=== PATIENT | male | born 1945 | race Caucasian/White ===

== ENCOUNTER 2017-03-19 20:28 | Outpatient (CLI) | payer MEDICARE, BC | END 2017-03-19 20:29 | disposition critical access hospital (66) | DX: R41.82 Altered mental status, unspecified (principal) | CPT/HCPCS: A0425; A0427 ==

== ENCOUNTER 2017-03-19 21:03 | Emergency (ER) | payer MEDICARE, BC ==
[2017-03-19 21:45] LABS: BILIRUBIN,URINE NEGATIVE (NEGATIVE)
[2017-03-19 21:50] LABS: UA CHARGE (STRIP ONLY) YES; UR CULTURE IF IND NOT INDICATED
[2017-03-19 22:03] LABS: BASOPHILS # (AUTO) 0.1 10^3/uL (0.0-0.1); BASOPHILS % (AUTO) 1.1 %; EOSINOPHILS # (AUTO) 0.2 10^3/uL (0.0-0.7); EOSINOPHILS % (AUTO) 3.2 %; HCT - HEMATOCRIT 41.7 % (42.0-52.0); HGB - HEMOGLOBIN 13.9 g/dL (14.0-18.0); LYMPHOCYTES # (AUTO) 0.9 10^3/uL (1.5-3.5); LYMPHOCYTES % (AUTO) 15.7 %; MEAN CORPUSCULAR HEMOGLOBIN 31.2 pg (27.0-31.0); MEAN CORPUSCULAR HGB CONC 33.2 g/dL (32.0-36.0); MEAN CORPUSCULAR VOLUME 93.9 fL (80.0-94.0); MEAN PLATELET VOLUME 8.1 fL (7.4-11.4); MONOCYTES # (AUTO) 0.5 10^3/uL (0.0-1.0); MONOCYTES % (AUTO) 9.5 %; NEUTROPHILS # (AUTO) 4.1 10^3/uL (1.5-6.6); NEUTROPHILS % (AUTO) 70.5 %; RED BLOOD COUNT 4.44 10^6/uL (4.70-6.10); RED CELL DISTRIBUTION WIDTH 15.4 % (12.0-15.0); UNCORRECTED WHITE BLOOD COUNT 5.8 x10^3/uL; WHITE BLOOD COUNT 5.8 x10^3/uL (4.8-10.8)
[2017-03-19 22:15] LABS: ALBUMIN/GLOBULIN RATIO 1.8 (1.0-2.2); BILIRUBIN,TOTAL 0.6 mg/dL (0.2-1.0); CALCIUM 9.3 mg/dL (8.5-10.3); CREATININE 0.9 mg/dL (0.6-1.2); MAGNESIUM 2.3 mg/dL (1.7-2.8); PHOSPHORUS 2.5 mg/dL (2.5-4.6); TOTAL PROTEIN 7.4 g/dL (6.7-8.2)
[2017-03-19 22:21] VITALS: BP 173/91
--- NOTE | 2017-03-19 22:28 | ED Physician Documentation ---
PD HPI ALTERED MENTAL STATUS - Stated complaint Stated Complaint: AMS - Chief complaint Chief Complaint: Neuro - History obtained from History obtained from: Patient PD PAST MEDICAL HISTORY - Past Medical History Past Medical History: Yes Cardiovascular: High cholesterol Respiratory: None Neuro: None Endocrine/Autoimmune: None GI: None : Benign prostate hypertrophy HEENT: None Psych: Post traumatic stress disorder Derm: None - Past Surgical History Past Surgical History: Yes General: Other - Present Medications Home Medications: Ambulatory Orders Medication Instructions Recorded Confirmed Acetaminophen 1 mg PO DAILY 03/19/17 03/19/17 Atorvastatin [Lipitor] 20 mg PO DAILY 03/19/17 03/19/17 Baclofen 40 mg PO BID 03/19/17 03/19/17 Cholecalciferol (Vitamin D3) 4,000 unit PO DAILY 03/19/17 03/19/17 [Vitajoy Daily D] Duloxetine HCl [Cymbalta] 120 mg PO DAILY 03/19/17 03/19/17 LORazepam [Ativan] 1 mg PO DAILY 03/19/17 03/19/17 Metoprolol Succinate 1 mg PO DAILY 03/19/17 03/19/17 Naproxen [Naprosyn] 1 mg PO BID 03/19/17 03/19/17 clonazePAM [KlonoPIN] 1.5 mg pe PO DAILY 03/19/17 03/19/17 - Allergies Allergies/Adverse Reactions: Allergies Allergy/AdvReac Type Severity Reaction Status Date / Time clonidine AdvReac Hives Verified 03/19/17 21:22 codeine AdvReac Hallucinati Verified 03/19/17 21:22 ons diphenhydramine AdvReac Unknown Verified 03/19/17 21:23 morphine AdvReac Hallucinati Verified 03/19/17 21:23 ons prazosin AdvReac Unknown Verified 03/19/17 21:23 sulfamethoxazole AdvReac Hives Verified 03/19/17 21:22 [From Bactrim] trimethoprim [From Bactrim] AdvReac Hives Verified 03/19/17 21:22 - Social History Does the pt smoke?: No Smoking Status: Never smoker Does the pt drink ETOH?: Yes Does the pt have substance abuse?: No - Immunizations Immunizations are current?: Yes - POLST Patient has POLST: No Results - Vitals Vitals: Vital Signs - 24 hr 03/19/17 03/19/17 21:05 22:20 Temperature 36.2 C L 36.7 C Heart Rate 77 67 Respiratory 18 16 Rate Blood Pressure 170/84 H 173/91 H O2 Saturation 96 96 Oxygen O2 Source Room air - Labs Labs: Laboratory Tests 03/19/17 03/19/17 03/19/17 21:35 21:54 21:54 WBC 5.8 RBC 4.44 L Hgb 13.9 L Hct 41.7 L MCV 93.9 MCH 31.2 H MCHC 33.2 RDW 15.4 H Plt Count 186 MPV 8.1 Neut # 4.1 Lymph # 0.9 L [place] # 0.5 Eos # 0.2 Baso # 0.1 Absolute Nucleated RBC 0.00 Nucleated RBCs 0.0 Sodium 143 Potassium 4.0 Chloride 108 Carbon Dioxide 28 Anion Gap 7.0 BUN 23 H Creatinine 0.9 Estimated GFR (MDRD) 83 L Glucose 102 H Calcium 9.3 Phosphorus 2.5 Magnesium 2.3 Total Bilirubin 0.6 AST 26 ALT 21 Alkaline Phosphatase 65 Ammonia B-Natriuretic Peptide Total Protein 7.4 Albumin 4.8 Globulin 2.6 Albumin/Globulin Ratio 1.8 Lipase 32 Urine Color YELLOW Urine Clarity CLEAR Urine pH 6.0 Ur Specific [place] 1.025 Urine Protein NEGATIVE Urine Glucose (UA) NEGATIVE Urine Ketones TRACE Urine Occult Blood NEGATIVE Urine Nitrite NEGATIVE Urine Bilirubin NEGATIVE Urine Urobilinogen 0.2 (NORMAL) Ur Leukocyte Esterase NEGATIVE Ur Microscopic Review NOT INDICATED Urine Culture Comments NOT INDICATED Ethyl Alcohol 5.8 03/19/17 03/19/17 21:54 21:54 WBC RBC Hgb Hct MCV MCH MCHC RDW Plt Count MPV Neut # Lymph # [place] # Eos # Baso # Absolute Nucleated RBC Nucleated RBCs Sodium Potassium Chloride Carbon Dioxide Anion Gap BUN Creatinine Estimated GFR (MDRD) Glucose Calcium Phosphorus Magnesium Total Bilirubin AST ALT Alkaline Phosphatase Ammonia 11.4 B-Natriuretic Peptide 106 H Total Protein Albumin Globulin Albumin/Globulin Ratio Lipase Urine Color Urine Clarity Urine pH Ur Specific [place] Urine Protein Urine Glucose (UA) Urine Ketones Urine Occult Blood Urine Nitrite Urine Bilirubin Urine Urobilinogen Ur Leukocyte Esterase Ur Microscopic Review Urine Culture Comments Ethyl Alcohol Departure - Departure Disposition: 01 Home, Self Care Clinical Impression: Medication adverse effect Condition: Good Instructions: Delirium Prevent Follow-Up: Radha Headr ARNP [Primary Care Provider] - Within 3 Days Comments: Your diagnostics today were within normal limits. Your symptoms were likely secondary to the combination of medications and alcohol. The mixture of the medications can be sedating and can be dangerous. Try to make sure you are careful about the amount you are taking and how often. You should follow up with your doctor on wednesday for possibly taking less of the benzodiazapams. You may return to the emergency department at any time for new, worsening or uncontrollable symptoms.
--- NOTE | 2017-03-20 00:12 | ED Physician Documentation ---
PD HPI ALTERED MENTAL STATUS - Stated complaint Stated Complaint: AMS - Chief complaint Chief Complaint: Neuro - History obtained from History obtained from: Patient, Family, EMS - History of Present Illness Timing - onset: How many hours ago (4) Timing - details: Gradual onset, Now resolved Quality / character: Confused, Disoriented Associated symptoms: No: Fever, Headache, Stiff neck Contributing factors: Recent med change Basline status: Alert and oriented X 3, Independent Similar symptoms before: Work up / diagnostics, Treatment, Follow up Recently seen: Not recently seen - Additional information Additional information: Patient is a 71 year old male with with multiple comorbidities including anxiety , and back pain who is presenting to the emergency department for altered mental status. According to patient and ems patient reports that there is about a 4 hour window of today that he did not remember. He states that he might have taken the wrong amount of his baclofen but he isn't really sure. Review of Systems Constitutional: denies: Fever, Chills Eyes: denies: Decreased vision, Photophobia Ears: denies: Ear pain, Drainage/discharge Nose: denies: Rhinorrhea / runny nose, Congestion Throat: denies: Dental pain / toothache, Oral lesions / sores Cardiac: denies: Chest pain / pressure, Palpitations Respiratory: denies: Dyspnea, Cough, Wheezing GI: denies: Abdominal Pain, Nausea, Vomiting Skin: denies: Rash, Lesions Musculoskeletal: denies: Neck pain, Back pain, Extremity pain Neurologic: reports: Confused. denies: Generalized weakness, Focal weakness, Numbness Psychiatric: reports: Anxiety. denies: Depressed, Suicidal Immunocompromised: denies: Immunocompromised PD PAST MEDICAL HISTORY - Past Medical History Past Medical History: Yes Cardiovascular: High cholesterol Respiratory: None Neuro: None Endocrine/Autoimmune: None GI: None : Benign prostate hypertrophy HEENT: None Psych: Post traumatic stress disorder Derm: None - Past Surgical History Past Surgical History: Yes General: Other - Present Medications Home Medications: Ambulatory Orders Medication Instructions Recorded Confirmed Acetaminophen 1 mg PO DAILY 03/19/17 03/19/17 Atorvastatin [Lipitor] 20 mg PO DAILY 03/19/17 03/19/17 Baclofen 40 mg PO BID 03/19/17 03/19/17 Cholecalciferol (Vitamin D3) 4,000 unit PO DAILY 03/19/17 03/19/17 [Vitajoy Daily D] Duloxetine HCl [Cymbalta] 120 mg PO DAILY 03/19/17 03/19/17 LORazepam [Ativan] 1 mg PO DAILY 03/19/17 03/19/17 Metoprolol Succinate 1 mg PO DAILY 03/19/17 03/19/17 Naproxen [Naprosyn] 1 mg PO BID 03/19/17 03/19/17 clonazePAM [KlonoPIN] 1.5 mg pe PO DAILY 03/19/17 03/19/17 - Allergies Allergies/Adverse Reactions: Allergies Allergy/AdvReac Type Severity Reaction Status Date / Time clonidine AdvReac Hives Verified 03/19/17 21:22 codeine AdvReac Hallucinati Verified 03/19/17 21:22 ons diphenhydramine AdvReac Unknown Verified 03/19/17 21:23 morphine AdvReac Hallucinati Verified 03/19/17 21:23 ons prazosin AdvReac Unknown Verified 03/19/17 21:23 sulfamethoxazole AdvReac Hives Verified 03/19/17 21:22 [From Bactrim] trimethoprim [From Bactrim] AdvReac Hives Verified 03/19/17 21:22 - Social History Does the pt smoke?: No Smoking Status: Never smoker Does the pt drink ETOH?: Yes Does the pt have substance abuse?: No - Immunizations Immunizations are current?: Yes - POLST Patient has POLST: No PD ED PE NORMAL - Vitals Vital signs reviewed: Yes - General General: No acute distress, Well developed/nourished - HEENT HEENT: Atraumatic, PERRL, Pharynx benign - Neck Neck: Supple, no meningeal sign, No JVD - Cardiac Cardiac: RRR, No murmur - Respiratory Respiratory: No respiratory distress, Clear bilaterally - Abdomen Abdomen: Soft, Non tender, Non distended - Derm Derm: Normal color, Warm and dry, No rash - Extremities Extremities: No deformity - Neuro Neuro: No motor deficit, No sensory deficit, Normal speech - Psych Psych: Normal mood, Normal affect PD ED PE EXPANDED - Neuro Neuro: Other (alert and oriented to place and situation, but could not remember the date) Results - Vitals Vitals: Vital Signs - 24 hr 03/19/17 03/19/17 21:05 22:20 Temperature 36.2 C L 36.7 C Heart Rate 77 67 Respiratory 18 16 Rate Blood Pressure 170/84 H 173/91 H O2 Saturation 96 96 Oxygen O2 Source Room air - Labs Labs: Laboratory Tests 03/19/17 03/19/17 03/19/17 21:35 21:54 21:54 WBC 5.8 RBC 4.44 L Hgb 13.9 L Hct 41.7 L MCV 93.9 MCH 31.2 H MCHC 33.2 RDW 15.4 H Plt Count 186 MPV 8.1 Neut # 4.1 Lymph # 0.9 L [place] # 0.5 Eos # 0.2 Baso # 0.1 Absolute Nucleated RBC 0.00 Nucleated RBCs 0.0 Sodium 143 Potassium 4.0 Chloride 108 Carbon Dioxide 28 Anion Gap 7.0 BUN 23 H Creatinine 0.9 Estimated GFR (MDRD) 83 L Glucose 102 H Calcium 9.3 Phosphorus 2.5 Magnesium 2.3 Total Bilirubin 0.6 AST 26 ALT 21 Alkaline Phosphatase 65 Ammonia B-Natriuretic Peptide Total Protein 7.4 Albumin 4.8 Globulin 2.6 Albumin/Globulin Ratio 1.8 Lipase 32 TSH Urine Color YELLOW Urine Clarity CLEAR Urine pH 6.0 Ur Specific [place] 1.025 Urine Protein NEGATIVE Urine Glucose (UA) NEGATIVE Urine Ketones TRACE Urine Occult Blood NEGATIVE Urine Nitrite NEGATIVE Urine Bilirubin NEGATIVE Urine Urobilinogen 0.2 (NORMAL) Ur Leukocyte Esterase NEGATIVE Ur Microscopic Review NOT INDICATED Urine Culture Comments NOT INDICATED Urine Opiates Screen NEGATIVE Ur Oxycodone Screen NEGATIVE Urine Methadone Screen NEGATIVE Ur Propoxyphene Screen NEGATIVE Ur Barbiturates Screen NEGATIVE Ur Tricyclics Screen NEGATIVE Ur Phencyclidine Scrn NEGATIVE Ur Amphetamine Screen NEGATIVE U Methamphetamines Scrn NEGATIVE U Benzodiazepines Scrn POSITIVE H Urine Cocaine Screen NEGATIVE U Cannabinoids Screen NEGATIVE Ethyl Alcohol 5.8 03/19/17 03/19/17 03/19/17 21:54 21:54 21:54 WBC RBC Hgb Hct MCV MCH MCHC RDW Plt Count MPV Neut # Lymph # [place] # Eos # Baso # Absolute Nucleated RBC Nucleated RBCs Sodium Potassium Chloride Carbon Dioxide Anion Gap BUN Creatinine Estimated GFR (MDRD) Glucose Calcium Phosphorus Magnesium Total Bilirubin AST ALT Alkaline Phosphatase Ammonia 11.4 B-Natriuretic Peptide 106 H Total Protein Albumin Globulin Albumin/Globulin Ratio Lipase TSH 0.90 Urine Color Urine Clarity Urine pH Ur Specific [place] Urine Protein Urine Glucose (UA) Urine Ketones Urine Occult Blood Urine Nitrite Urine Bilirubin Urine Urobilinogen Ur Leukocyte Esterase Ur Microscopic Review Urine Culture Comments Urine Opiates Screen Ur Oxycodone Screen Urine Methadone Screen Ur Propoxyphene Screen Ur Barbiturates Screen Ur Tricyclics Screen Ur Phencyclidine Scrn Ur Amphetamine Screen U Methamphetamines Scrn U Benzodiazepines Scrn Urine Cocaine Screen U Cannabinoids Screen Ethyl Alcohol PD MEDICAL DECISION MAKING - ED course Complexity details: reviewed old records, reviewed results, re-evaluated patient , considered differential, d/w patient, d/w family ED course: Patient was seen and examined at bedside. iV access was gained and labs were drawn. when patient's arrived more information was provided. Patient had taken too much baclofen to go along with two benzodiazapams. Patient then proceeded to stop for a beer or two at lunch as well. Patient has had this issue before where he takes too much of his medication and gets confused. They stated that they did not want the CT at this time. Upon discharge patient was awake, alert and in no distress. Patient was discharged in stable condition. Departure - Departure Disposition: 01 Home, Self Care Clinical Impression: Medication adverse effect Condition: Good Instructions: Delirium Prevent Follow-Up: Radha Heard ARNP [Primary Care Provider] - Within 3 Days Comments: Your diagnostics today were within normal limits. Your symptoms were likely secondary to the combination of medications and alcohol. The mixture of the medications can be sedating and can be dangerous. Try to make sure you are careful about the amount you are taking and how often. You should follow up with your doctor on wednesday for possibly taking less of the benzodiazapams. You may return to the emergency department at any time for new, worsening or uncontrollable symptoms. Discharge Date/Time: 03/19/17 22:35
== END 2017-03-19 22:35 | disposition home or self-care (01) ==
LOC: EDUNIT# → ED 21:03
DX: R41.82 Altered mental status, unspecified (principal); T42.8X5A Adverse effect of antiparkinsonism drugs and other central muscle-tone depressants, initial encounter; Y92.019 Unspecified place in single-family (private) house as the place of occurrence of the external cause; E78.00 Pure hypercholesterolemia, unspecified; N40.0 Benign prostatic hyperplasia without lower urinary tract symptoms; F41.9 Anxiety disorder, unspecified; M54.9 Dorsalgia, unspecified
CPT/HCPCS: 80053; 80306; 81003; 82140; 83690; 83735; 83880; 84100; 84443; 85025; 99284; G0480; 80320; 81001; 87086

== ENCOUNTER 2017-04-24 10:36 | Outpatient (CLI) | payer MEDICARE, BC | END 2017-04-24 10:37 | disposition critical access hospital (66) | LOC: EMS 10:36 | PROVIDERS: ATTEND Surgery | DX: R41.82 Altered mental status, unspecified (principal) | CPT/HCPCS: A0425; A0429 ==

== ENCOUNTER 2017-04-24 11:14 | Inpatient (IN) | payer MEDICARE, BC ==
--- NOTE | 2017-04-24 12:16 | ED Physician Documentation ---
History of Present Illness - Stated complaint Stated Complaint: MHE - Chief complaint Chief Complaint: MHE - Additonal information Additional information: hx from pt 71 male Pmhx prior back surgery, HTN, sleep apnea uses CPAP, lipids. depression, anxiety , PTSD. hx bladder cancer, hx TIA per report recently admitted to [facility] 04/13-04/18 for monitored withdrawal from baclofen clonazepam and ativan and at dc was started on trazodone and gabapentin and continued his cymbalta per (per nurse who called ) pt has been confused since dc and now is hallucinating per he is not safe at home pt states he has had hallucinations with withdrawal from gabapentin baclofen and clonazepam before too last Nov - states the sx were due to baclofen withdrawal denies EtOH use - last drink 03/19/17 no reported seizure per EMS and pt no fall pt has a HAD last night but not before and not now no CP AP no fever cough NVD or urinary sx pt states he feels things under his skin and can see things on his legs, no auditory hallucinations no reported SI HI Review of Systems Constitutional: denies: Fever, Chills Ears: denies: Ear pain Throat: denies: Sore throat Cardiac: denies: Chest pain / pressure Respiratory: denies: Dyspnea GI: denies: Abdominal Pain : denies: Dysuria Psychiatric: reports: Hallucinations. denies: Depressed, Suicidal, Homicidal Endocrine: denies: Easy bruising / bleeding Immunocompromised: denies: Immunocompromised PD PAST MEDICAL HISTORY - Past Medical History Cardiovascular: High cholesterol Respiratory: None Neuro: None Endocrine/Autoimmune: None GI: None : Benign prostate hypertrophy HEENT: None Psych: Post traumatic stress disorder Derm: None - Past Surgical History Past Surgical History: Yes General: Other - Present Medications Home Medications: Ambulatory Orders Medication Instructions Recorded Confirmed Atorvastatin [Lipitor] 20 mg PO DAILY 03/19/17 04/25/17 Metoprolol Succinate 100 mg PO DAILY@199903/19/17 04/25/17 Melatonin 10 mg ORAL DAILY PRN 04/24/17 04/25/17 Cholecalciferol (Vitamin D3) 2,000 units PO DAILY@1400 04/25/17 04/25/17 [Vitamin D3] Cyanocobalamin (Vitamin B-12) 10,000 mcg PO DAILY@0800 04/25/17 04/25/17 [Vitamin B-12] Levomefolate Calcium 15 mg PO DAILY 04/25/17 04/25/17 [l-Methylfolate] Milk Thistle 250 mg PO DAILY@199904/25/17 04/25/17 Multivit-Min/FA/Lycopen/Lutein 1 tab PO DAILY@79904/25/17 04/25/17 [Centrum Silver Men Tablet] Naproxen Sodium 220 mg PO DAILY@139904/25/17 04/25/17 Naproxen Sodium 220 mg PO DAILY@199904/25/17 04/25/17 Naproxen Sodium 440 mg PO DAILY@79904/25/17 04/25/17 [place]-3S/Dha/Epa/Fish Oil/D3 [Fish 1 tab PO DAILY@79904/25/17 04/25/17 Oil Gummies] S-Adenosylmethionine Sul Tosyl 400 mg PO DAILY@79904/25/17 04/25/17 [Mehdi-E] S-Adenosylmethionine Sul Tosyl 400 mg PO DAILY@139904/25/17 04/25/17 [Mehdi-E] Turmeric Root Extract [Turmeric] 1,500 mg PO DAILY@199904/25/17 04/25/17 Ubidecarenone/Vit E Acetate [Co 200 mg PO DAILY@139904/25/17 04/25/17 Q-10 100 mg Softgel] - Allergies Allergies/Adverse Reactions: Allergies Allergy/AdvReac Type Severity Reaction Status Date / Time clonidine AdvReac Hives Verified 04/24/17 11:30 codeine AdvReac Hallucinati Verified 04/24/17 11:30 ons diphenhydramine AdvReac Unknown Verified 04/24/17 11:30 morphine AdvReac Hallucinati Verified 04/24/17 11:30 ons prazosin AdvReac Unknown Verified 04/24/17 11:30 sulfamethoxazole AdvReac Hives Verified 04/24/17 11:30 [From Bactrim] trimethoprim [From Bactrim] AdvReac Hives Verified 04/24/17 11:30 - Social History Does the pt smoke?: No Smoking Status: Never smoker Does the pt drink ETOH?: Yes Does the pt have substance abuse?: No - Immunizations Immunizations are current?: Yes - POLST Patient has POLST: No PD ED PE NORMAL - Vitals Vital signs reviewed: Yes - General General: Other (alert oriented cooperative but confused - cannot recall his meds or dates he was admitted precisely, does not remember what he was withdrawm from) - HEENT HEENT: PERRL - Neck Neck: Supple, no meningeal sign - Cardiac Cardiac: RRR - Respiratory Respiratory: No respiratory distress, Clear bilaterally - Abdomen Abdomen: Soft, Non tender - Neuro Neuro: train inspector 2-12 intact, No motor deficit. No: Alert and oriented X 3 - Psych Psych: Other (no SI HI but having visual and tactile hallucinations) Results - Vitals Vitals: Vital Signs - 24 hr 04/24/17 15:35 Heart Rate 84 Respiratory 19 Rate Blood Pressure 149/88 H O2 Saturation 93 Oxygen O2 Source Room air - Labs Labs: Laboratory Tests 04/24/17 04/24/17 04/24/17 12:35 12:35 12:35 WBC 7.9 RBC 4.58 L Hgb 14.4 Hct 41.8 L MCV 91.4 MCH 31.4 H MCHC 34.4 RDW 12.9 Plt Count 228 MPV 7.0 L Neut # 5.7 Lymph # 1.3 L [place] # 0.7 Eos # 0.1 Baso # 0.1 Absolute Nucleated RBC 0.00 Nucleated RBCs 0.0 Sodium 138 Potassium 4.5 Chloride 101 Carbon Dioxide 28 Anion Gap 9.0 BUN 19 Creatinine 0.9 Estimated GFR (MDRD) 83 L Glucose 109 H Calcium 9.5 Total Bilirubin 1.0 AST 25 ALT 29 Alkaline Phosphatase 67 Total Protein 7.5 Albumin 4.7 Globulin 2.8 Albumin/Globulin Ratio 1.7 Lipase 27 TSH 0.93 Urine Color Urine Clarity Urine pH Ur Specific [place] Urine Protein Urine Glucose (UA) Urine Ketones Urine Occult Blood Urine Nitrite Urine Bilirubin Urine Urobilinogen Ur Leukocyte Esterase Ur Microscopic Review Urine Culture Comments Salicylates < 6.0 Urine Opiates Screen Ur Oxycodone Screen Urine Methadone Screen Ur Propoxyphene Screen Acetaminophen < 10 L Ur Barbiturates Screen Ur Tricyclics Screen Ur Phencyclidine Scrn Ur Amphetamine Screen U Methamphetamines Scrn U Benzodiazepines Scrn Urine Cocaine Screen U Cannabinoids Screen Ethyl Alcohol < 5.0 04/24/17 12:52 WBC RBC Hgb Hct MCV MCH MCHC RDW Plt Count MPV Neut # Lymph # [place] # Eos # Baso # Absolute Nucleated RBC Nucleated RBCs Sodium Potassium Chloride Carbon Dioxide Anion Gap BUN Creatinine Estimated GFR (MDRD) Glucose Calcium Total Bilirubin AST ALT Alkaline Phosphatase Total Protein Albumin Globulin Albumin/Globulin Ratio Lipase TSH Urine Color YELLOW Urine Clarity CLEAR Urine pH 5.5 Ur Specific [place] >=1.030 H Urine Protein NEGATIVE Urine Glucose (UA) NEGATIVE Urine Ketones NEGATIVE Urine Occult Blood NEGATIVE Urine Nitrite NEGATIVE Urine Bilirubin NEGATIVE Urine Urobilinogen 0.2 (NORMAL) Ur Leukocyte Esterase NEGATIVE Ur Microscopic Review NOT INDICATED Urine Culture Comments NOT INDICATED Salicylates Urine Opiates Screen NEGATIVE Ur Oxycodone Screen NEGATIVE Urine Methadone Screen NEGATIVE Ur Propoxyphene Screen NEGATIVE Acetaminophen Ur Barbiturates Screen POSITIVE H Ur Tricyclics Screen NEGATIVE Ur Phencyclidine Scrn NEGATIVE Ur Amphetamine Screen NEGATIVE U Methamphetamines Scrn NEGATIVE U Benzodiazepines Scrn POSITIVE H Urine Cocaine Screen NEGATIVE U Cannabinoids Screen NEGATIVE Ethyl Alcohol - Rads (name of study) CXR Radiology: See rad report (neg) PD MEDICAL DECISION MAKING - ED course ED course: confusion and now psychosis last EtOH 03/19 last benzo should have been 04/13 (but tox screen +) doubt new onset schizophrenia at age 71 no infectious cause found more likely med related or delerium will admit for further obs and care gave zyprexa in the ER with no sig change pt declined CT but willing to have MRI - will see if available - available but pt too altered to fill out screening paperwork and has not arrived sx could be 2/2 new meds trazodone and gabapentin waited for to arrive but when she did not, I called and spoke to (she hasn't slept in days 2/2 pt behavior and that is why she didn't come) and she explains that she thinks the pt may be having withdrawal sx from baclofen, that he has been awake for days and speaking to imaginary friends and very angry at that she cannot see these imaginary friends, states pt's counselor is Dr Reese Rosado fax , states that she gave him some ativan this AM because she was desperate to calm him down, states sx started when he was dced from baclofen last fall after surgery at [facility] with terrible withdrawal psychosis, was then restarted on baclofen, and then several mild episodes with occasional missed doses, but then recently decided he wanted to get off that baclofen medication all together which is why he checked into detox, she also thinks he may be having a reaction to cymbalta which was recently started in detox, also she explains he has not had any fluids or food for days, also 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[facility] [employer] so the is very clear that the pt went to [facility] to get detox for baclofen, but the dc summary from [facility] states pt was tapered off benzos and his admit/dc dx was benzo detox and in fact his dc med reconciliation states to continue baclofen as before,, also states that cymbalta is a new medication for him but the dc summary states to continue cymbalta as before - so seems most likely all these sx of psychosis are acute baclofen withdrawal whih pt has suffered from before - or perhaps side effect of cymbalta apparently called [facility] and SW there wanted to speak with me so I called and spoke to MAURICIO Farias at [facility] detox - she states pt was tapered off baclofen last dose April 15, wdrawal sx could have been muted by phenobarb pt was on while admitted, she agrees the dc summary implies he was just there for benzo wdrawal but that he was tapered off the baclofen but not clear why would continue baclofen after detox for same, and she states per [facility] records pt was on cymbalta prior to admit though of pt states this is a new medication Departure - Departure Disposition: ED Place in Observation Clinical Impression: Psychosis Qualifiers: Psychosis type: other Qualified Code(s): F28 - Other psychotic disorder not due to a substance or known physiological condition Condition: Good Discharge Date/Time: 04/24/17 17:33
[2017-04-24 12:46] LABS: BASOPHILS # (AUTO) 0.1 10^3/uL (0.0-0.1); BASOPHILS % (AUTO) 1.1 %; EOSINOPHILS # (AUTO) 0.1 10^3/uL (0.0-0.7); EOSINOPHILS % (AUTO) 1.3 %; HCT - HEMATOCRIT 41.8 % (42.0-52.0); HGB - HEMOGLOBIN 14.4 g/dL (14.0-18.0); LYMPHOCYTES # (AUTO) 1.3 10^3/uL (1.5-3.5); LYMPHOCYTES % (AUTO) 16.7 %; MEAN CORPUSCULAR HEMOGLOBIN 31.4 pg (27.0-31.0); MEAN CORPUSCULAR HGB CONC 34.4 g/dL (32.0-36.0); MEAN CORPUSCULAR VOLUME 91.4 fL (80.0-94.0); MONOCYTES # (AUTO) 0.7 10^3/uL (0.0-1.0); NEUTROPHILS # (AUTO) 5.7 10^3/uL (1.5-6.6); NEUTROPHILS % (AUTO) 71.9 %; RED BLOOD COUNT 4.58 10^6/uL (4.70-6.10); RED CELL DISTRIBUTION WIDTH 12.9 % (12.0-15.0); UNCORRECTED WHITE BLOOD COUNT 7.9 x10^3/uL; WHITE BLOOD COUNT 7.9 x10^3/uL (4.8-10.8)
[2017-04-24 13:03] LABS: ALBUMIN/GLOBULIN RATIO 1.7 (1.0-2.2); BUN - BLOOD UREA NITROGEN 19 mg/dL (6-20); CALCIUM 9.5 mg/dL (8.5-10.3); CARBON DIOXIDE - CO2 28 mmol/L (21-32); CHLORIDE 101 mmol/L (101-111); CREATININE 0.9 mg/dL (0.6-1.2); GFR - MDRD 83 (>89); GLUCOSE 109 mg/dL (70-100); LIPASE 27 U/L (22-51); POTASSIUM 4.5 mmol/L (3.5-5.0); SALICYLATE < 6.0 mg/dL; SODIUM 138 mmol/L (135-145); TOTAL PROTEIN 7.5 g/dL (6.7-8.2)
[2017-04-24 13:04] LABS: ACETAMINOPHEN < 10 ug/mL (10-30)
[2017-04-24] MEDS ORDERED: OLANZapine ODT 5 MG TABLET TL ONE ×2 (13:32→13:37)
[2017-04-24 13:43] LABS: BILIRUBIN,URINE NEGATIVE (NEGATIVE); PH,URINE 5.5 PH (5.0-7.5)
[2017-04-24 13:46] LABS: UA CHARGE (STRIP ONLY) YES; UR CULTURE IF IND NOT INDICATED
--- NOTE | 2017-04-24 14:15 | XRAY Preliminary Report ---
Exam: XR Chest 1 View IMPRESSION: Normal single view chest. [facility] SITE ID: [id number]
--- NOTE | 2017-04-24 14:18 | XRAY Report ---
EXAM: CHEST RADIOGRAPHY EXAM DATE: 04/24/2017 02:09 PM. CLINICAL HISTORY: AMS ? infectious source. COMPARISON: 03/23/2009. TECHNIQUE: 1 view. FINDINGS: Lungs/Pleura: No focal opacities evident. No pleural effusion. No pneumothorax. Mediastinum: Within exam limitations, cardiomediastinal contour is normal. Other: None. IMPRESSION: Normal single view chest. [facility] Referring Provider Line: [phone] SITE ID: [id number]
[2017-04-24] MEDS ORDERED: SODIUM CHLORIDE 0.9% 1,000 ML IV ONE ×2 (16:55)
--- NOTE | 2017-04-24 17:00 | HISTORY & PHYSICAL EXAMINATION ---
Chief Complaint - Chief Complaint Chief Complaint: altered mental status History of Present Illness - Admitted From Admitted From:: Emergency department - History Obtained From Records Reviewed: yes History obtained from: Record review as PT is not reliable historian - History of Present Illness HPI Comment/Other: PT was brought in with acute psychosis and letered mental status. HE has acute changes from his baseline with tactile hallucinations. He was recently discharged from [facility] for monitored withdrawal of his clonazepam and lorazepam. He was started on gabapentin and trazodone. PT is now in the ED altered with confusion, agitation and manic like activity. He is not oriented at this time. He will tell you his age, BD and attempt to tell you date and day but not when asked. This appears to be more trying to remember what he had been told. In the ED his UDS was positive for benzodiazepines however he was not supposed to have taken this class of medication for 10 days. Pt had similar presentation to the ED 03/19/17 after taking benzodiazapams, baclofen and drinking ETOH. Per his [facility] perinatal social worker he had similar reaction withdrawing from baclofen in September Further discussion with his spouse by ED MD. Spouse thought he had been admitted to wean off baclofen and not benzodiazapams. She had given him some of his Benzos last night and this am to help with his agitation. He has not received Baclofen since his discharge. His Sx are the same as his presentation after stopping these in September. Review of Systems - Cardiovascular Cariovascular: denies: Chest pain - Respiratory Respiratory: denies: SOB at rest - Gastrointestinal Gastrointestinal: denies: Abdominal pain, Diarrhea, Vomiting - Musculoskeletal Musculoskeletal: denies: Muscle pain, Muscle aches - Neurological Neurological: reports: Headache. denies: Dizziness - Psychiatric Psychiatric: denies: Suicidal, Homicidal - Other Findings Other Findings: Unable to obtain an accurate ROS due to altered mental status. HE does deny: chest pain, dyspnea, abdominal pain, nausea, vomiting. He reports a headache today. History - Past Medical History Cardiovascular: reports: High cholesterol Respiratory: reports: None Neuro: reports: None Endocrine/Autoimmune: reports: None GI: reports: None : reports: Benign prostate hypertrophy HEENT: reports: None Psych: reports: Post traumatic stress disorder Derm: reports: None MRSA Hx?: No - Past Surgical History General: reports: Other - POLST Patient has POLST: No Meds/Allgy - Home Medications Home Medications: Ambulatory Orders Medication Instructions Recorded Confirmed Atorvastatin [Lipitor] 20 mg PO DAILY 03/19/17 04/24/17 Duloxetine HCl [Cymbalta] 120 mg PO DAILY 03/19/17 04/24/17 Metoprolol Succinate 100 mg PO DAILY 03/19/17 04/24/17 Naproxen [Naprosyn] 250 mg PO BID 03/19/17 04/24/17 Gabapentin 300 mg PO BID 04/24/17 04/24/17 Melatonin 5 mg ORAL DAILY PRN 04/24/17 04/24/17 traZODone [Desyrel] 50 mg PO DAILY 04/24/17 04/24/17 - Allergies Allergies/Adverse Reactions: Allergies Allergy/AdvReac Type Severity Reaction Status Date / Time clonidine AdvReac Hives Verified 04/24/17 11:30 codeine AdvReac Hallucinati Verified 04/24/17 11:30 ons diphenhydramine AdvReac Unknown Verified 04/24/17 11:30 morphine AdvReac Hallucinati Verified 04/24/17 11:30 ons prazosin AdvReac Unknown Verified 04/24/17 11:30 sulfamethoxazole AdvReac Hives Verified 04/24/17 11:30 [From Bactrim] trimethoprim [From Bactrim] AdvReac Hives Verified 04/24/17 11:30 Exam - Vital Signs Vital Signs: Vital Signs x48h Temp Pulse Resp BP Pulse Ox 04/24/17 15:35 84 19 149/88 H 93 04/24/17 11:15 36.8 C 71 18 159/79 H 96 - Physical Exam General Appearance: positive: Anxious, Other (agitated, Manic behavior) Eyes Bilateral: positive: Normal inspection, PERRL, EOMI ENT: positive: ENT inspection nml, Pharynx nml Neck: positive: Thyroid nml, No JVD Respiratory: positive: Chest non-tender, No respiratory distress, Breath sounds nml Cardiovascular: positive: Regular rate & rhythm, No murmur, No gallop Peripheral Pulses: positive: 2+ Abdomen: positive: Non-tender, No organomegaly, Nml bowel sounds Back: positive: Nml inspection Skin: positive: Warm, Dry Extremities: positive: Non-tender, Full ROM, No pedal edema Neurologic/Psychiatric: positive: Disoriented to place, Disoriented to time, Other (manic mood) Conclusion/Plan - Problem List (1) Psychosis Conclusion/Plan: Suspect this is secondary to medication withdrawal. He has a hx of similar reaction after stopping his baclofen. There is disconnect between discharge summary from [place] and 's understanding of recent hospital course. She thought he was tapered off baclofen and not his benzodiazapams. At home he stopped the baclofen and continued the benzos. PT is refusing CT scan but willing to have MRI to look for organic etiology. I suspect the family was confused on which medications to take and he abruptly stopped his Baclofen. Plan: Will continue to monitor. Plan to get MRI as ordered. 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 May need to restart his baclofen and taper this off to help prevent symptoms of withdrawal. Qualifiers: Psychosis type: other Qualified Code(s): F28 - Other psychotic disorder not due to a substance or known physiological condition (2) HTN (hypertension) Conclusion/Plan: Will continue pt on his BB. Routine BP monitoring. - Lab Results Lab results reviewed: Yes Fish Bones: 04/24/17 12:35 04/24/17 12:35 Issues/Core Measures - Anticipated LOS Anticipated Stay Length: 2 or more midnights - DVT/VTE - Prophylaxis VTE/DVT Prophylaxis med ordered at admit?: Yes - Stroke - Rehab Assessment Rehab services assessment to be ordered?: No Not Ordered - Medical Reason: Not indicated - AMI - Statin at Admit Not Ordered - Medical Reason: Not indicated
[2017-04-24] MEDS ORDERED: ZIPRASIDONE 20 MG VIAL IM PRN (17:19)
[2017-04-24] MEDS: ENOXAPARIN 40 MG/0.4 ML SYRINGE SUBQ SCH (18:14)
[2017-04-24] MEDS: SODIUM CHLORIDE FLUSH 0.9% 10 ML SYRINGE IVP SCH (18:18)
[2017-04-25] MEDS: SODIUM CHLORIDE FLUSH 0.9% 10 ML SYRINGE IVP PRN (01:45)
[2017-04-25] MEDS: PANTOPRAZOLE 40 MG TABLET PO SCH (07:04)
[2017-04-25] MEDS: SODIUM CHLORIDE FLUSH 0.9% 10 ML SYRINGE IVP SCH ×3 (07:04→21:19)
--- NOTE | 2017-04-25 08:54 | PROVIDER PROGRESS NOTE ---
Assessment/Plan - Problem List (1) Psychosis Qualifiers: Psychosis type: other Qualified Code(s): F28 - Other psychotic disorder not due to a substance or known physiological condition Assessment/Plan: Appears to be from medication withdrawal. PT is improved today but does not feel back to baseline. Plan: continue to monitor for changes in mental status. PRN medication available for agitation. Avoiding benzodiazapine and baclofen. (2) HTN (hypertension) Assessment/Plan: Mildly elevated today. Continue to monitor routine VS. No changes today - Current Meds Current Meds: Current Medications Generic Name Dose Route Start Last Admin Trade Name Freq PRN Reason Stop Dose Admin Enoxaparin Sodium 40 mg 04/24/17 18:00 04/24/17 18:14 Lovenox SUBQ 40 mg DAILY ARGENIS Administration Pantoprazole Sodium 40 mg 04/25/17 07:00 04/25/17 07:04 Protonix PO 40 mg QDAC ARGENIS Administration Sodium Chloride 10 ml 04/24/17 16:36 04/25/17 01:45 Normal Saline Flush 0.9% IVP 10 ml PRN PRN Administration NEEDED PER PROVIDER ORDERS Sodium Chloride 10 ml 04/24/17 22:00 04/25/17 07:04 Normal Saline Flush 0.9% IVP 10 ml Q8HR ARGENIS Administration - Lab Result Lab results reviewed: Yes Fish Bone Diagrams: 04/24/17 12:35 04/24/17 12:35 - Additional Planning Condition/Complexity: Stable My Orders: My Active Orders 04/24/17 16:44 Acetaminophen [Tylenol] 650 mg PO Q4HR PRN 04/24/17 16:45 SCDs [RC] QSHIFT 04/24/17 17:19 Ziprasidone IM [Geodon IM] 10 mg IM Q6H PRN 04/24/17 18:00 Enoxaparin [Lovenox] 40 mg SUBQ DAILY 04/25/17 07:00 Pantoprazole [Protonix] 40 mg PO QDAC 04/25/17 09:00 Atorvastatin [Lipitor] 20 mg PO DAILY Metoprolol Succinate [Toprol Xl] 100 mg PO DAILY Plan Discussed with:: Patient Time Spent: 15-30 minutes Subjective - Subjective Patient Reports: Feeling Better (Pt feels better today but states he is confused. He is also having trouble recalling events from the last few days.) Nursing Reports: No Complaints Objective Vital Signs: Vital Signs - 24 hr 04/24/17 04/25/17 04/25/17 17:43 00:30 02:11 Temperature 36.7 C 36.3 C L Heart Rate [ 75 92 78 Brachial] Respiratory 20 18 Rate Blood Pressure 151/84 H 170/90 H 150/73 H [Right Brachial artery] O2 Saturation 94 98 Oxygen O2 Source Room air I&O (Last 24 Hrs): Intake and Output Totals x24h 04/23/17 04/24/17 04/25/17 23:59 23:59 23:59 Intake Total 1874 515 Balance 1874 515 General: No acute distress, Other (Improved alertness but remains confused) HEENT: HAILEY ROMEROMI Neuro: Alert, CN 2-12 Grossly Intact Cardiovascular: Regular rate, No murmurs Respiratory: No respiratory distress, Breath sounds nml Abdomen: Normal bowel sounds Extremities: No edema Skin: No breakdown - Results Results: Laboratory Results WBC 7.9 x10^3/uL (4.8-10.8) 04/24/17 12:35 RBC 4.58 10^6/uL (4.70-6.10) L 04/24/17 12:35 Hgb 14.4 g/dL (14.0-18.0) 04/24/17 12:35 Hct 41.8 % (42.0-52.0) L 04/24/17 12:35 MCV 91.4 fL (80.0-94.0) 04/24/17 12:35 MCH 31.4 pg (27.0-31.0) H 04/24/17 12:35 MCHC 34.4 g/dL (32.0-36.0) 04/24/17 12:35 RDW 12.9 % (12.0-15.0) 04/24/17 12:35 Plt Count 228 10^3/uL (130-450) 04/24/17 12:35 MPV 7.0 fL (7.4-11.4) L 04/24/17 12:35 Neut # 5.7 10^3/uL (1.5-6.6) 04/24/17 12:35 Lymph # 1.3 10^3/uL (1.5-3.5) L 04/24/17 12:35 [place] # 0.7 10^3/uL (0.0-1.0) 04/24/17 12:35 Eos # 0.1 10^3/uL (0.0-0.7) 04/24/17 12:35 Baso # 0.1 10^3/uL (0.0-0.1) 04/24/17 12:35 Absolute Nucleated RBC 0.00 x10^3/uL 04/24/17 12:35 Nucleated RBCs 0.0 /100WBC 04/24/17 12:35 Sodium 138 mmol/L (135-145) 04/24/17 12:35 Potassium 4.5 mmol/L (3.5-5.0) 04/24/17 12:35 Chloride 101 mmol/L (101-111) 04/24/17 12:35 Carbon Dioxide 28 mmol/L (21-32) 04/24/17 12:35 Anion Gap 9.0 (6-13) 04/24/17 12:35 BUN 19 mg/dL (6-20) 04/24/17 12:35 Creatinine 0.9 mg/dL (0.6-1.2) 04/24/17 12:35 Estimated GFR (MDRD) 83 (>89) L 04/24/17 12:35 Glucose 109 mg/dL (70-100) H 04/24/17 12:35 Calcium 9.5 mg/dL (8.5-10.3) 04/24/17 12:35 Total Bilirubin 1.0 mg/dL (0.2-1.0) 04/24/17 12:35 AST 25 IU/L (10-42) 04/24/17 12:35 ALT 29 IU/L (10-60) 04/24/17 12:35 Alkaline Phosphatase 67 IU/L (42-121) 04/24/17 12:35 Total Protein 7.5 g/dL (6.7-8.2) 04/24/17 12:35 Albumin 4.7 g/dL (3.2-5.5) 04/24/17 12:35 Globulin 2.8 g/dL (2.1-4.2) 04/24/17 12:35 Albumin/Globulin Ratio 1.7 (1.0-2.2) 04/24/17 12:35 Lipase 27 U/L (22-51) 04/24/17 12:35 TSH 0.93 uIU/mL (0.34-5.60) 04/24/17 12:35 Urine Color YELLOW 04/24/17 12:52 Urine Clarity CLEAR (CLEAR) 04/24/17 12:52 Urine pH 5.5 PH (5.0-7.5) 04/24/17 12:52 Ur Specific [place] >=1.030 (1.002-1.030) H 04/24/17 12:52 Urine Protein NEGATIVE mg/dL (NEGATIVE) 04/24/17 12:52 Urine Glucose (UA) NEGATIVE mg/dL (NEGATIVE) 04/24/17 12:52 Urine Ketones NEGATIVE mg/dL (NEGATIVE) 04/24/17 12:52 Urine Occult Blood NEGATIVE (NEGATIVE) 04/24/17 12:52 Urine Nitrite NEGATIVE (NEGATIVE) 04/24/17 12:52 Urine Bilirubin NEGATIVE (NEGATIVE) 04/24/17 12:52 Urine Urobilinogen 0.2 (NORMAL) E.U./dL (NORMAL) 04/24/17 12:52 Ur Leukocyte Esterase NEGATIVE (NEGATIVE) 04/24/17 12:52 Ur Microscopic Review NOT INDICATED 04/24/17 12:52 Urine Culture Comments NOT INDICATED 04/24/17 12:52 Salicylates < 6.0 mg/dL 04/24/17 12:35 Urine Opiates Screen NEGATIVE (NEGATIVE) 04/24/17 12:52 Ur Oxycodone Screen NEGATIVE (NEGATIVE) 04/24/17 12:52 Urine Methadone Screen NEGATIVE (NEGATIVE) 04/24/17 12:52 Ur Propoxyphene Screen NEGATIVE (NEGATIVE) 04/24/17 12:52 Acetaminophen < 10 ug/mL (10-30) L 04/24/17 12:35 Ur Barbiturates Screen POSITIVE (NEGATIVE) H 04/24/17 12:52 Ur Tricyclics Screen NEGATIVE (NEGATIVE) 04/24/17 12:52 Ur Phencyclidine Scrn NEGATIVE (NEGATIVE) 04/24/17 12:52 Ur Amphetamine Screen NEGATIVE (NEGATIVE) 04/24/17 12:52 U Methamphetamines Scrn NEGATIVE (NEGATIVE) 04/24/17 12:52 U Benzodiazepines Scrn POSITIVE (NEGATIVE) H 04/24/17 12:52 Urine Cocaine Screen NEGATIVE (NEGATIVE) 04/24/17 12:52 U Cannabinoids Screen NEGATIVE (NEGATIVE) 04/24/17 12:52 Ethyl Alcohol < 5.0 mg/dL 04/24/17 12:35
[2017-04-25] MEDS: ATORVASTATIN 10 MG TABLET PO SCH (10:06)
[2017-04-25] MEDS: ENOXAPARIN 40 MG/0.4 ML SYRINGE SUBQ SCH (10:06)
[2017-04-25] MEDS: METOPROLOL SUCCINATE 50 MG TABLET PO SCH (10:06)
[2017-04-25] MEDS: POLYETHYLENE GLYCOL 3350 17 GM PACKET PO SCH (10:07)
[2017-04-25] MEDS: ACETAMINOPHEN 325 MG TABLET PO PRN (21:17)
[2017-04-26] MEDS ORDERED: CARBOXYMETHYLCELLULOSE OPHTH DROPS EACHEYE PRN (01:49)
[2017-04-26] MEDS: ACETAMINOPHEN 325 MG TABLET PO PRN ×3 (01:55→21:41)
[2017-04-26] MEDS: PANTOPRAZOLE 40 MG TABLET PO SCH (06:40)
[2017-04-26] MEDS: SODIUM CHLORIDE FLUSH 0.9% 10 ML SYRINGE IVP SCH ×3 (06:41→21:29)
[2017-04-26] MEDS: ENOXAPARIN 40 MG/0.4 ML SYRINGE SUBQ SCH (08:26)
[2017-04-26] MEDS: METOPROLOL SUCCINATE 50 MG TABLET PO SCH (08:26)
[2017-04-26] MEDS: ATORVASTATIN 10 MG TABLET PO SCH (08:27)
[2017-04-26] MEDS: POLYETHYLENE GLYCOL 3350 17 GM PACKET PO SCH (08:28)
--- NOTE | 2017-04-26 09:32 | PROVIDER PROGRESS NOTE ---
Assessment/Plan - Problem List (1) Psychosis Qualifiers: Psychosis type: other Qualified Code(s): F28 - Other psychotic disorder not due to a substance or known physiological condition Assessment/Plan: Mostl likely from withdrawal of Baclofen. Similar problems occurred with abrupt cessation of this medication in the past. He is feeling better today but complains of anxiety at times. He needs to be monitored at least another 24 hours before discharging. Should not be placed back on baclofen or benzos (2) HTN (hypertension) Assessment/Plan: Poor control on current medications. May be exacerbated by the medication withdrawal. Plan: continue to monitor. Add Low dose ACEI - Current Meds Current Meds: Current Medications Generic Name Dose Route Start Last Admin Trade Name Freq PRN Reason Stop Dose Admin Acetaminophen 650 mg 04/24/17 16:44 04/26/17 01:55 Tylenol PO 650 mg Q4HR PRN Administration Pain 1 to 4 Atorvastatin Calcium 20 mg 04/25/17 09:00 04/26/17 08:27 Lipitor PO 20 mg DAILY ARGENIS Administration Carboxymethylcellulose 1 drops 04/26/17 01:49 04/26/17 06:41 Refresh 1% Ophth Drops EACHEYE 1 drops Q4HR PRN Administration Dry Eye Enoxaparin Sodium 40 mg 04/24/17 18:00 04/26/17 08:26 Lovenox SUBQ 40 mg DAILY ARGENIS Administration Metoprolol Succinate 100 mg 04/25/17 09:00 04/26/17 08:26 Toprol Xl PO 100 mg DAILY ARGENIS Administration Pantoprazole Sodium 40 mg 04/25/17 07:00 04/26/17 06:40 Protonix PO 40 mg QDAC ARGENIS Administration Polyethylene Glycol 17 gm 04/25/17 09:00 04/26/17 08:28 Miralax PO Not Given DAILY ARGENIS Sodium Chloride 10 ml 04/24/17 16:36 04/25/17 01:45 Normal Saline Flush 0.9% IVP 10 ml PRN PRN Administration NEEDED PER PROVIDER ORDERS Sodium Chloride 10 ml 04/24/17 22:00 04/26/17 06:41 Normal Saline Flush 0.9% IVP 10 ml Q8HR ARGENIS Administration - Lab Result Lab results reviewed: Yes Fish Bone Diagrams: 04/24/17 12:35 04/24/17 12:35 - Additional Planning Condition/Complexity: Stable My Orders: My Active Orders 04/25/17 09:00 Atorvastatin [Lipitor] 20 mg PO DAILY Metoprolol Succinate [Toprol Xl] 100 mg PO DAILY 04/26/17 01:49 Carboxymethylcellulose 1% Opht [Refresh 1% Ophth Drops] 1 drops EACHEYE Q4HR PRN Plan Discussed with:: Patient Time Spent: 15-30 minutes Subjective - Subjective Patient Reports: Feeling Better (Feels better today. Continues to have anxiety. Did not sleep well last night.) Nursing Reports: No Complaints Objective Vital Signs: Vital Signs - 24 hr 04/25/17 04/25/17 04/25/17 10:07 12:55 16:13 Temperature 36.3 C L 36.1 C L Heart Rate [ 97 70 71 Brachial] Respiratory 16 18 Rate Blood Pressure 171/91 H 152/89 H 157/102 H [Left Brachial artery] O2 Saturation 96 97 96 04/26/17 04/26/17 00:15 09:09 Temperature 37.0 C 36.7 C Heart Rate [ 76 68 Brachial] Respiratory 18 16 Rate Blood Pressure 155/80 H 172/98 H [Left Brachial artery] O2 Saturation 96 97 Oxygen O2 Source Room air I&O (Last 24 Hrs): Intake and Output Totals x24h 04/24/17 04/25/17 04/26/17 23:59 23:59 23:59 Intake Total 1874 2365 1410 Output Total 700 Balance 1874 1665 1410 General: Alert, No acute distress HEENT: PERRLA, EOMI Neck: No JVD Neuro: Alert, Other (anxious) Cardiovascular: Regular rate, Normal S1, Normal S2 Respiratory: Chest non-tender, No respiratory distress, Breath sounds nml Abdomen: Normal bowel sounds Extremities: No edema - Results Results: Laboratory Results WBC 7.9 x10^3/uL (4.8-10.8) 04/24/17 12:35 RBC 4.58 10^6/uL (4.70-6.10) L 04/24/17 12:35 Hgb 14.4 g/dL (14.0-18.0) 04/24/17 12:35 Hct 41.8 % (42.0-52.0) L 04/24/17 12:35 MCV 91.4 fL (80.0-94.0) 04/24/17 12:35 MCH 31.4 pg (27.0-31.0) H 04/24/17 12:35 MCHC 34.4 g/dL (32.0-36.0) 04/24/17 12:35 RDW 12.9 % (12.0-15.0) 04/24/17 12:35 Plt Count 228 10^3/uL (130-450) 04/24/17 12:35 MPV 7.0 fL (7.4-11.4) L 04/24/17 12:35 Neut # 5.7 10^3/uL (1.5-6.6) 04/24/17 12:35 Lymph # 1.3 10^3/uL (1.5-3.5) L 04/24/17 12:35 [place] # 0.7 10^3/uL (0.0-1.0) 04/24/17 12:35 Eos # 0.1 10^3/uL (0.0-0.7) 04/24/17 12:35 Baso # 0.1 10^3/uL (0.0-0.1) 04/24/17 12:35 Absolute Nucleated RBC 0.00 x10^3/uL 04/24/17 12:35 Nucleated RBCs 0.0 /100WBC 04/24/17 12:35 Sodium 138 mmol/L (135-145) 04/24/17 12:35 Potassium 4.5 mmol/L (3.5-5.0) 04/24/17 12:35 Chloride 101 mmol/L (101-111) 04/24/17 12:35 Carbon Dioxide 28 mmol/L (21-32) 04/24/17 12:35 Anion Gap 9.0 (6-13) 04/24/17 12:35 BUN 19 mg/dL (6-20) 04/24/17 12:35 Creatinine 0.9 mg/dL (0.6-1.2) 04/24/17 12:35 Estimated GFR (MDRD) 83 (>89) L 04/24/17 12:35 Glucose 109 mg/dL (70-100) H 04/24/17 12:35 Calcium 9.5 mg/dL (8.5-10.3) 04/24/17 12:35 Total Bilirubin 1.0 mg/dL (0.2-1.0) 04/24/17 12:35 AST 25 IU/L (10-42) 04/24/17 12:35 ALT 29 IU/L (10-60) 04/24/17 12:35 Alkaline Phosphatase 67 IU/L (42-121) 04/24/17 12:35 Total Protein 7.5 g/dL (6.7-8.2) 04/24/17 12:35 Albumin 4.7 g/dL (3.2-5.5) 04/24/17 12:35 Globulin 2.8 g/dL (2.1-4.2) 04/24/17 12:35 Albumin/Globulin Ratio 1.7 (1.0-2.2) 04/24/17 12:35 Lipase 27 U/L (22-51) 04/24/17 12:35 TSH 0.93 uIU/mL (0.34-5.60) 04/24/17 12:35 Urine Color YELLOW 04/24/17 12:52 Urine Clarity CLEAR (CLEAR) 04/24/17 12:52 Urine pH 5.5 PH (5.0-7.5) 04/24/17 12:52 Ur Specific [place] >=1.030 (1.002-1.030) H 04/24/17 12:52 Urine Protein NEGATIVE mg/dL (NEGATIVE) 04/24/17 12:52 Urine Glucose (UA) NEGATIVE mg/dL (NEGATIVE) 04/24/17 12:52 Urine Ketones NEGATIVE mg/dL (NEGATIVE) 04/24/17 12:52 Urine Occult Blood NEGATIVE (NEGATIVE) 04/24/17 12:52 Urine Nitrite NEGATIVE (NEGATIVE) 04/24/17 12:52 Urine Bilirubin NEGATIVE (NEGATIVE) 04/24/17 12:52 Urine Urobilinogen 0.2 (NORMAL) E.U./dL (NORMAL) 04/24/17 12:52 Ur Leukocyte Esterase NEGATIVE (NEGATIVE) 04/24/17 12:52 Ur Microscopic Review NOT INDICATED 04/24/17 12:52 Urine Culture Comments NOT INDICATED 04/24/17 12:52 Salicylates < 6.0 mg/dL 04/24/17 12:35 Urine Opiates Screen NEGATIVE (NEGATIVE) 04/24/17 12:52 Ur Oxycodone Screen NEGATIVE (NEGATIVE) 04/24/17 12:52 Urine Methadone Screen NEGATIVE (NEGATIVE) 04/24/17 12:52 Ur Propoxyphene Screen NEGATIVE (NEGATIVE) 04/24/17 12:52 Acetaminophen < 10 ug/mL (10-30) L 04/24/17 12:35 Ur Barbiturates Screen POSITIVE (NEGATIVE) H 04/24/17 12:52 Ur Tricyclics Screen NEGATIVE (NEGATIVE) 04/24/17 12:52 Ur Phencyclidine Scrn NEGATIVE (NEGATIVE) 04/24/17 12:52 Ur Amphetamine Screen NEGATIVE (NEGATIVE) 04/24/17 12:52 U Methamphetamines Scrn NEGATIVE (NEGATIVE) 04/24/17 12:52 U Benzodiazepines Scrn POSITIVE (NEGATIVE) H 04/24/17 12:52 Urine Cocaine Screen NEGATIVE (NEGATIVE) 04/24/17 12:52 U Cannabinoids Screen NEGATIVE (NEGATIVE) 04/24/17 12:52 Ethyl Alcohol < 5.0 mg/dL 04/24/17 12:35
[2017-04-26] MEDS ORDERED: NON FORMULARY MED (Melatonin [Melatonin] 10 MG) ORAL PRN (10:13)
[2017-04-26] MEDS: LISINOPRIL 5 MG TABLET PO SCH (12:11)
[2017-04-26] MEDS ORDERED: DULoxetine 30 MG CAPSULE PO SCH (21:00)
[2017-04-26] MEDS: Melatonin [Melatonin] 10 MG PO PRN (21:28)
[2017-04-27 05:56] LABS: ALBUMIN/GLOBULIN RATIO 1.6 (1.0-2.2); BILIRUBIN,TOTAL 0.9 mg/dL (0.2-1.0); CALCIUM 9.5 mg/dL (8.5-10.3); POTASSIUM 4.1 mmol/L (3.5-5.0); TOTAL PROTEIN 6.9 g/dL (6.7-8.2)
[2017-04-27] MEDS: SODIUM CHLORIDE FLUSH 0.9% 10 ML SYRINGE IVP PRN (06:30)
[2017-04-27] MEDS: PANTOPRAZOLE 40 MG TABLET PO SCH (06:30)
[2017-04-27] MEDS: SODIUM CHLORIDE FLUSH 0.9% 10 ML SYRINGE IVP SCH ×3 (09:11→18:35)
[2017-04-27] MEDS: ENOXAPARIN 40 MG/0.4 ML SYRINGE SUBQ SCH (09:12)
[2017-04-27] MEDS: METOPROLOL SUCCINATE 50 MG TABLET PO SCH (09:12)
[2017-04-27] MEDS: LISINOPRIL 5 MG TABLET PO SCH (09:12)
[2017-04-27] MEDS: ATORVASTATIN 10 MG TABLET PO SCH (09:12)
[2017-04-27] MEDS: POLYETHYLENE GLYCOL 3350 17 GM PACKET PO SCH (09:13)
[2017-04-27] MEDS: ACETAMINOPHEN 325 MG TABLET PO PRN ×2 (09:24→18:34)
[2017-04-27] MEDS ORDERED: DULoxetine 30 MG CAPSULE PO SCH (13:01)
[2017-04-27] MEDS: UBIDECARENONE PO SCH (15:12)
[2017-04-27] MEDS: [UNRECOGNIZED DRUG - OTHER] PO SCH (15:12)
--- NOTE | 2017-04-27 20:01 | PROVIDER PROGRESS NOTE ---
Subjective - Prog Note Date Prog Note Date: 04/27/17 Prog Note Time: 19:58 (late entry, seen this am 745, and in afternooon) - Subjective Pt reports feeling: Improved (describes a vivid dream last night, (likes quantum physics, a asteroid/ or planet blowing up) coincided with his large volume diarrhea feels much better, slept well w/ melatonin, did not take his cymbalta last night April, able to detail his history in accurate detail) Current Medications - Current Medications Current Medications: Active Medications Generic Name Dose Route Start Last Admin Trade Name Freq PRN Reason Stop Dose Admin Acetaminophen 650 mg 04/24/17 16:44 04/27/17 18:34 Tylenol PO 650 mg Q4HR PRN Administration Pain 1 to 4 Atorvastatin Calcium 20 mg 04/25/17 09:00 04/27/17 09:12 Lipitor PO 20 mg DAILY ARGENIS Administration Carboxymethylcellulose 1 drops 04/26/17 01:49 04/26/17 06:41 Refresh 1% Ophth Drops EACHEYE 1 drops Q4HR PRN Administration Dry Eye Enoxaparin Sodium 40 mg 04/24/17 18:00 04/27/17 09:12 Lovenox SUBQ 40 mg DAILY ARGENIS Administration Lisinopril 5 mg 04/26/17 11:00 04/27/17 09:12 Zestril PO 5 mg DAILY ARGENIS Administration Metoprolol Succinate 100 mg 04/25/17 09:00 04/27/17 09:12 Toprol Xl PO 100 mg DAILY ARGENIS Administration Pantoprazole Sodium 40 mg 04/25/17 07:00 04/27/17 06:30 Protonix PO 40 mg QDAC ARGENIS Administration Melatonin [Melatonin 1 each 04/27/17 21:00 04/26/17 21:28 ] 10 Mg PO 1 each QPM PRN Administration SLEEP Ubidecarenone/Vit E 1 each 04/27/17 14:00 04/27/17 15:12 Acetate [Co Q-10 100 PO Not Given Mg Softgel] 200 Mg DAILY@1400 ARGENIS Polyethylene Glycol 17 gm 04/25/17 09:00 04/27/17 09:13 Miralax PO Not Given DAILY ARGENIS Sodium Chloride 10 ml 04/24/17 16:36 04/27/17 06:30 Normal Saline Flush 0.9% IVP 10 ml PRN PRN Administration NEEDED PER PROVIDER ORDERS Sodium Chloride 10 ml 04/24/17 22:00 04/27/17 18:35 Normal Saline Flush 0.9% IVP 10 ml Q8HR ARGENIS Administration Ziprasidone 10 mg 04/24/17 17:19 Geodon Im IM Q6H PRN Agitation Atorvastatin [Lipitor] 20 mg PO DAILY@79903/19/17 Metoprolol Succinate 100 mg PO DAILY@199903/19/17 Melatonin 10 mg ORAL DAILY PRN 04/24/17 Cholecalciferol (Vitamin D3) [Vitamin D3] 2,000 units PO DAILY@139904/25/17 Cyanocobalamin (Vitamin B-12) [Vitamin B-12] 10,000 mcg PO DAILY@79904/25/17 Levomefolate Calcium [l-Methylfolate] 15 mg PO DAILY@79904/25/17 Milk Thistle 250 mg PO DAILY@199904/25/17 Multivit-Min/FA/Lycopen/Lutein [Centrum Silver Men Tablet] 1 tab PO DAILY@79904/25/17 Naproxen Sodium 220 mg PO DAILY@139904/25/17 Naproxen Sodium 220 mg PO DAILY@199904/25/17 Naproxen Sodium 440 mg PO DAILY@79904/25/17 [place]-3S/Dha/Epa/Fish Oil/D3 [Fish Oil Gummies] 1 tab PO DAILY@79904/25/17 Quercetin Dihydrate 1 gm PO DAILY@139904/25/17 Quercetin Dihydrate 500 mg PO DAILY@79904/25/17 S-Adenosylmethionine Sul Tosyl [Mehdi-E] 400 mg PO DAILY@79904/25/17 S-Adenosylmethionine Sul Tosyl [Mehdi-E] 400 mg PO DAILY@139904/25/17 Turmeric Root Extract [Turmeric] 1,500 mg PO DAILY@199904/25/17 Ubidecarenone/Vit E Acetate [Co Q-10 100 mg Softgel] 200 mg PO DAILY@1399 Objective - Vital Signs/Intake & Output Reviewed Vital Signs: Yes Vital Signs: Vital Signs x48h Temp Pulse Resp BP Pulse Ox 04/27/17 16:15 36.8 C 76 14 141/75 H 96 8:10 36.5 61 185/93 95% 18 Intake & Output: Intake & Output 04/24/17 04/25/17 04/26/17 04/27/17 23:59 23:59 23:59 23:59 Intake Total 1874 2365 3031 2616 Output Total 700 Balance 1874 1665 3031 2616 - Objective General Appearance: positive: No acute distress, Other (sitting up in chair eating breakfast, alert, oriented , appropriate, no tremor, non toxic appearing , cooperative) Respiratory: positive: No respiratory distress, Breath sounds nml Cardiovascular: positive: Regular rate & rhythm, No murmur Extremities: positive: No pedal edema Neurologic/Psychiatric: positive: Oriented x3, Mood/affect nml - Lab Results Fish Bones: 04/24/17 12:35 04/27/17 05:31 Other Labs: Lab Results x24hrs 04/27/17 Range/Units 05:31 Sodium 139 (135-145) mmol/L Potassium 4.1 (3.5-5.0) mmol/L Chloride 103 (101-111) mmol/L Carbon Dioxide 28 (21-32) mmol/L Anion Gap 8.0 (6-13) BUN 13 (6-20) mg/dL Creatinine 1.0 (0.6-1.2) mg/dL Estimated GFR (MDRD) 74 L (>89) Glucose 123 H (70-100) mg/dL Calcium 9.5 (8.5-10.3) mg/dL Total Bilirubin 0.9 (0.2-1.0) mg/dL AST 19 (10-42) IU/L ALT 24 (10-60) IU/L Alkaline Phosphatase 62 (42-121) IU/L Total Protein 6.9 (6.7-8.2) g/dL Albumin 4.2 (3.2-5.5) g/dL Globulin 2.7 (2.1-4.2) g/dL Albumin/Globulin Ratio 1.6 (1.0-2.2) Assessment/Plan - Problem List (1) Psychosis Impression: Psychosis/acute delerium related to benzodiazepine/ baclofen withdrawal Qualifiers: Psychosis type: other Qualified Code(s): F28 - Other psychotic disorder not due to a substance or known physiological condition Assessment/Plan: Delerium MUCH improved, patient also slept well just w/ melatonin (refused the pm cymbalta, even though was advised by Dr. Rosado to take in PM in case it was contributing to his sedation. does not want it given and she d/w Dr. Ramirez spoke w/ Dr. Rosado (Reese Rosado): He is aware of want He notes patient still at high risk for a manic / PTSD episode given the temporal relationship to all the recently d/c'd meds. He advised continued hospitalization x additonal 48 hrs (til Thrusday); still has prn zyprexa if has manic (PTSD) episode (has not needed) and that Have stopped all benzos (clonazepam, lorazepam , and the Baclofen (several days already). aware that given the many years on these agents (benzo and baclofen), there still could be some w/d reaction of some form for weeks still. 04/26 Mostl likely from withdrawal of Baclofen. Similar problems occurred with abrupt cessation of this medication in the past. He is feeling better today but complains of anxiety at times. He needs to be monitored at least another 24 hours before discharging. Should not be placed back on baclofen or benzos (2) HTN (hypertension) Assessment/Plan: 04/27; still elevated, low dose acei added yesterday. reports well controlled at home and "white coat htn". He does note some low level anxiety currently; will continue to monitor and not add any new meds right now as still may have some withdrawal (SBP 141 at 4pm,) continue home metoprolol (and the acei started here) (since new ACEI, if continues on d/c should have f/u 04/26 Poor control on current medications. May be exacerbated by the medication withdrawal. Plan: continue to monitor. Add Low dose ACEI 3)Insomnia: per Dr. Rosado; will need outpatient CBT for insomina; does have sleep study already planned as outpatient continuing only with melatonin at HS for now 4) Hyperlipidemia : continue statin Qualifiers: Psychosis type: other Qualified Code(s): F28 - Other psychotic disorder not due to a substance or known physiological condition
[2017-04-27] MEDS: Melatonin [Melatonin] 10 MG PO PRN (21:43)
[2017-04-28] MEDS: PANTOPRAZOLE 40 MG TABLET PO SCH (06:01)
[2017-04-28] MEDS: SODIUM CHLORIDE FLUSH 0.9% 10 ML SYRINGE IVP SCH ×3 (06:02→22:12)
[2017-04-28] MEDS: ATORVASTATIN 10 MG TABLET PO SCH (08:41)
[2017-04-28] MEDS: METOPROLOL SUCCINATE 50 MG TABLET PO SCH (08:42)
[2017-04-28] MEDS: POLYETHYLENE GLYCOL 3350 17 GM PACKET PO SCH (08:42)
[2017-04-28] MEDS: ENOXAPARIN 40 MG/0.4 ML SYRINGE SUBQ SCH (08:42)
[2017-04-28] MEDS: LISINOPRIL 5 MG TABLET PO SCH (08:42)
[2017-04-28] MEDS: ACETAMINOPHEN 325 MG TABLET PO PRN ×2 (08:43→20:10)
[2017-04-28] MEDS: [UNRECOGNIZED DRUG - OTHER] PO SCH (13:58)
[2017-04-28] MEDS: UBIDECARENONE PO SCH (13:58)
--- NOTE | 2017-04-28 19:56 | PROVIDER PROGRESS NOTE ---
Subjective - Prog Note Date Prog Note Date: 04/28/17 Prog Note Time: 20:00 (late entry , seen early this am) - Subjective Subjective: Had a good night, feels mildly anxious Current Medications - Current Medications Current Medications: Active Medications Generic Name Dose Route Start Last Admin Trade Name Freq PRN Reason Stop Dose Admin Acetaminophen 650 mg 04/24/17 16:44 04/28/17 08:43 Tylenol PO 650 mg Q4HR PRN Administration Pain 1 to 4 Atorvastatin Calcium 20 mg 04/25/17 09:00 04/28/17 08:41 Lipitor PO 20 mg DAILY ARGENIS Administration Carboxymethylcellulose 1 drops 04/26/17 01:49 04/26/17 06:41 Refresh 1% Ophth Drops EACHEYE 1 drops Q4HR PRN Administration Dry Eye Duloxetine HCl 30 mg 04/28/17 21:00 Cymbalta PO QPM ARGENIS Enoxaparin Sodium 40 mg 04/24/17 18:00 04/28/17 08:42 Lovenox SUBQ 40 mg DAILY ARGENIS Administration Lisinopril 5 mg 04/26/17 11:00 04/28/17 08:42 Zestril PO 5 mg DAILY ARGENIS Administration Loperamide HCl 2 mg 04/28/17 19:47 Imodium PO BID ARGENIS Metoprolol Succinate 100 mg 04/25/17 09:00 04/28/17 08:42 Toprol Xl PO 100 mg DAILY ARGENIS Administration Pantoprazole Sodium 40 mg 04/25/17 07:00 04/28/17 06:01 Protonix PO 40 mg QDAC ARGENIS Administration Melatonin [Melatonin 1 each 04/27/17 21:00 04/27/17 21:43 ] 10 Mg PO 1 each QPM PRN Administration SLEEP Ubidecarenone/Vit E 1 each 04/27/17 14:00 04/28/17 13:58 Acetate [Co Q-10 100 PO Not Given Mg Softgel] 200 Mg DAILY@1400 [facility] Polyethylene Glycol 17 gm 04/25/17 09:00 04/28/17 08:42 Miralax PO Not Given DAILY ARGENIS Sodium Chloride 10 ml 04/24/17 16:36 04/27/17 06:30 Normal Saline Flush 0.9% IVP 10 ml PRN PRN Administration NEEDED PER PROVIDER ORDERS Sodium Chloride 10 ml 04/24/17 22:00 04/28/17 13:58 Normal Saline Flush 0.9% IVP 10 ml Q8HR ARGENIS Administration Ziprasidone 10 mg 04/24/17 17:19 Geodon Im IM Q6H PRN Agitation Atorvastatin [Lipitor] 20 mg PO DAILY@79903/19/17 Metoprolol Succinate 100 mg PO DAILY@199903/19/17 Melatonin 10 mg ORAL QPM PRN 04/24/17 Cholecalciferol (Vitamin D3) [Vitamin D3] 2,000 units PO DAILY@139904/25/17 Cyanocobalamin (Vitamin B-12) [Vitamin B-12] 10,000 mcg PO DAILY@79904/25/17 Levomefolate Calcium [l-Methylfolate] 15 mg PO DAILY@79904/25/17 Milk Thistle 250 mg PO DAILY@199904/25/17 Multivit-Min/FA/Lycopen/Lutein [Centrum Silver Men Tablet] 1 tab PO DAILY@79904/25/17 Naproxen Sodium 220 mg PO DAILY@139904/25/17 Naproxen Sodium 220 mg PO DAILY@199904/25/17 Naproxen Sodium 440 mg PO DAILY@79904/25/17 [place]-3S/Dha/Epa/Fish Oil/D3 [Fish Oil Gummies] 1 tab PO DAILY@79904/25/17 Quercetin Dihydrate 1 gm PO DAILY@139904/25/17 Quercetin Dihydrate 500 mg PO DAILY@79904/25/17 S-Adenosylmethionine Sul Tosyl [Mehdi-E] 400 mg PO DAILY@79904/25/17 S-Adenosylmethionine Sul Tosyl [Mehdi-E] 400 mg PO DAILY@139904/25/17 Turmeric Root Extract [Turmeric] 1,500 mg PO DAILY@199904/25/17 Ubidecarenone/Vit E Acetate [Co Q-10 100 mg Softgel] 200 mg PO DAILY@1399 Objective - Vital Signs/Intake & Output Reviewed Vital Signs: Yes Vital Signs: Vital Signs x48h Temp Pulse Resp BP Pulse Ox 04/28/17 16:34 36.8 C 76 18 151/81 H 97 Intake & Output: Intake & Output 04/25/17 04/26/17 04/27/17 04/28/17 23:59 23:59 23:59 23:59 Intake Total 2365 3031 2766 2380 Output Total 700 Balance 1665 3031 2766 2380 - Objective General Appearance: positive: No acute distress, Other (sitting up in chair brushing his teeth) Eyes Bilateral: positive: Normal inspection, EOMI, Other (wearing glasses) Cardiovascular: positive: Regular rate & rhythm, No murmur Neurologic/Psychiatric: positive: Oriented x3, Mood/affect nml - Lab Results Fish Bones: 04/24/17 12:35 04/27/17 05:31 Assessment/Plan - Problem List (1) Psychosis Impression: Psychosis/acute delerium related to benzodiazepine/ baclofen withdrawal Qualifiers: Psychosis type: other Qualified Code(s): F28 - Other psychotic disorder not due to a substance or known physiological condition Assessment/Plan: 04/28. slept well, does feel a little anxious today (just mildly) did not have a chance to speak with Dr Rosado today/ spoke with patient that I will give him the 30 mg cymbalta this evening. Even though Ms. Castillo wished to stop entirely, has been on cymbalta long-term. Will get taper instructions from Dr. Rosado plan d/c in am Add immodium for loose bowels; may still be r/t withdrawal 04/27Delerium MUCH improved, patient also slept well just w/ melatonin (refused the pm cymbalta, even though was advised by Dr. Rosado to take in PM in case it was contributing to his sedation. does not want it given and she d/w Dr. Ramirez spoke w/ Dr. Rosado (Reese Rosado): He is aware of want He notes patient still at high risk for a manic / PTSD episode given the temporal relationship to all the recently d/c'd meds. He advised continued hospitalization x additonal 48 hrs (til Thrusday); still has prn zyprexa if has manic (PTSD) episode (has not needed) and that Have stopped all benzos (clonazepam, lorazepam , and the Baclofen (several days already). aware that given the many years on these agents (benzo and baclofen), there still could be some w/d reaction of some form for weeks still. 04/26 Mostl likely from withdrawal of Baclofen. Similar problems occurred with abrupt cessation of this medication in the past. He is feeling better today but complains of anxiety at times. He needs to be monitored at least another 24 hours before discharging. Should not be placed back on baclofen or benzos (2) HTN (hypertension) Assessment/Plan: 04/28; blood pressure well controlled, no changes to current regimen 04/27; still elevated, low dose acei added yesterday. reports well controlled at home and "white coat htn". He does note some low level anxiety currently; will continue to monitor and not add any new meds right now as still may have some withdrawal (SBP 141 at 4pm,) continue home metoprolol (and the acei started here) (since new ACEI, if continues on d/c should have f/u 04/26 Poor control on current medications. May be exacerbated by the medication withdrawal. Plan: continue to monitor. Add Low dose ACEI 3)Insomnia: per Dr. Rosado; will need outpatient CBT for insomina; does have sleep study already planned as outpatient continuing only with melatonin at for now 4) Hyperlipidemia : continue statin Qualifiers: Psychosis type: other Qualified Code(s): F28 - Other psychotic disorder not due to a substance or known physiological condition
[2017-04-28] MEDS: LOPERAMIDE 2 MG CAPSULE PO SCH ×2 (20:09→21:55)
[2017-04-28] MEDS: DULoxetine 30 MG CAPSULE PO SCH (20:10)
[2017-04-28] MEDS: Melatonin [Melatonin] 10 MG PO PRN (22:11)
[2017-04-29] MEDS: ACETAMINOPHEN 325 MG TABLET PO PRN ×2 (04:15→22:04)
[2017-04-29] MEDS: PANTOPRAZOLE 40 MG TABLET PO SCH (06:25)
[2017-04-29] MEDS: SODIUM CHLORIDE FLUSH 0.9% 10 ML SYRINGE IVP SCH ×3 (06:26→22:03)
--- NOTE | 2017-04-29 07:29 | Discharge Plan ---
Discharge Plan Disposition: 01 Home, Self Care Condition: Stable Prescriptions: DULoxetine [Cymbalta] 30 mg PO BID #60 capsule Lisinopril [Zestril] 5 mg PO DAILY #30 tablet Diet: Regular Activity Restrictions: No Restrictions Shower Restrictions: No Driving Restrictions: No Weight Bearing: Full Weight Additional Instructions or Follow Up instructions: You came to the hospital with altered mentation/delerium (with hallucinations) after having inpatient treatment for benzodiazepine withdrawal (after [facility] clonazepam and lorazepam as well as baclofen. After several days of monitoring and continuing to hold those agents in discussion with Dr Reese Rosado, your delerium improved/ resolved. In discussion with Dr. Rosado, at this point the clonazepam, lorazepam, baclofen as you know continue to be stopped. You will likely have episodic , occasional symptoms of withdrawal , such as sweats, or loose bowels. You can use immodium (over the counter) for loose bowels The cymbalta dose is now 30 mg each am and each pm (i.e. cymbalta 30 mg twice daily) seems to be managing the anxiety symptoms quite well (after "experimenting" with none. Further taper instructions will be given by Dr. Rosado For sleep, continue to use the melatonin continue to use your CPAP nightly For Hypertension, a low dose lisinopril (5mg daily) was added to your metoprolol follow up with Radha Heard for ongoing blood pressure management No Smoking: If you smoke, Please STOP! Call for help. Follow-up with: Radha Heard, MARISSA [Primary Care Provider] - 1 Week (follow up with Radha Heard ~ 1 wk for reeval of blood pressure Consider check potassium, Cr (these were unremarkable after 1 wk on lisinopril Cr 1.0 K 4.1)
[2017-04-29] MEDS: ENOXAPARIN 40 MG/0.4 ML SYRINGE SUBQ SCH (09:18)
[2017-04-29] MEDS: ATORVASTATIN 10 MG TABLET PO SCH (09:18)
[2017-04-29] MEDS: LOPERAMIDE 2 MG CAPSULE PO SCH ×2 (09:19→22:08)
[2017-04-29] MEDS: METOPROLOL SUCCINATE 50 MG TABLET PO SCH (09:19)
[2017-04-29] MEDS: LISINOPRIL 5 MG TABLET PO SCH (09:19)
[2017-04-29] MEDS: POLYETHYLENE GLYCOL 3350 17 GM PACKET PO SCH (09:20)
[2017-04-29] MEDS ORDERED: DULoxetine 30 MG CAPSULE PO SCH (12:00)
--- NOTE | 2017-04-29 13:19 | PROVIDER PROGRESS NOTE ---
Subjective - Prog Note Date Prog Note Date: 04/29/17 Prog Note Time: 13:00 - Subjective Pt reports feeling: Worse (woke up diaphoretic ~ 2:30 am, nurses had to change sheets This morning he feels more anxious called and said he "sounds horrible" because you gave him the cymbalta. Patient had been on cymbalta for many years up to 120 mg / day. Most recently is on [address] Rosado recommended give cymbalta 60 mg at hs 3 days ago to eval if pt was drowsy during the day) Subjective: diarrhea IS improved after the immodium (1 last night and 1 this morning) Current Medications - Current Medications Current Medications: Active Medications Generic Name Dose Route Start Last Admin Trade Name Freq PRN Reason Stop Dose Admin Acetaminophen 650 mg 04/24/17 16:44 04/29/17 04:15 Tylenol PO 650 mg Q4HR PRN Administration Pain 1 to 4 Atorvastatin Calcium 20 mg 04/25/17 09:00 04/29/17 09:18 Lipitor PO 20 mg DAILY ARGENIS Administration Carboxymethylcellulose 1 drops 04/26/17 01:49 04/26/17 06:41 Refresh 1% Ophth Drops EACHEYE 1 drops Q4HR PRN Administration Dry Eye Duloxetine HCl 30 mg 04/28/17 21:00 04/28/17 20:10 Cymbalta PO 30 mg QPM ARGENIS Administration Enoxaparin Sodium 40 mg 04/24/17 18:00 04/29/17 09:18 Lovenox SUBQ 40 mg DAILY ARGENIS Administration Lisinopril 5 mg 04/26/17 11:00 04/29/17 09:19 Zestril PO 5 mg DAILY ARGENIS Administration Loperamide HCl 2 mg 04/28/17 19:47 04/29/17 09:19 Imodium PO 2 mg BID ARGENIS Administration Metoprolol Succinate 100 mg 04/25/17 09:00 04/29/17 09:19 Toprol Xl PO 100 mg DAILY ARGENIS Administration Pantoprazole Sodium 40 mg 04/25/17 07:00 04/29/17 06:25 Protonix PO 40 mg QDAC ARGENIS Administration Melatonin [Melatonin 1 each 04/27/17 21:00 04/28/17 22:11 ] 10 Mg PO 1 each QPM PRN Administration SLEEP Ubidecarenone/Vit E 1 each 04/27/17 14:00 04/28/17 13:58 Acetate [Co Q-10 100 PO Not Given Mg Softgel] 200 Mg DAILY@1400 [facility] Polyethylene Glycol 17 gm 04/25/17 09:00 04/29/17 09:20 Miralax PO Not Given DAILY ARGENIS Sodium Chloride 10 ml 04/24/17 16:36 04/27/17 06:30 Normal Saline Flush 0.9% IVP 10 ml PRN PRN Administration NEEDED PER PROVIDER ORDERS Sodium Chloride 10 ml 04/24/17 22:00 04/29/17 06:26 Normal Saline Flush 0.9% IVP 10 ml Q8HR ARGENIS Administration Ziprasidone 10 mg 04/24/17 17:19 Geodon Im IM Q6H PRN Agitation Atorvastatin [Lipitor] 20 mg PO DAILY@79903/19/17 Metoprolol Succinate 100 mg PO DAILY@199903/19/17 Melatonin 10 mg ORAL QPM PRN 04/24/17 Cholecalciferol (Vitamin D3) [Vitamin D3] 2,000 units PO DAILY@139904/25/17 Cyanocobalamin (Vitamin B-12) [Vitamin B-12] 10,000 mcg PO DAILY@79904/25/17 Levomefolate Calcium [l-Methylfolate] 15 mg PO DAILY@79904/25/17 Milk Thistle 250 mg PO DAILY@199904/25/17 Multivit-Min/FA/Lycopen/Lutein [Centrum Silver Men Tablet] 1 tab PO DAILY@79904/25/17 Naproxen Sodium 220 mg PO DAILY@139904/25/17 Naproxen Sodium 220 mg PO DAILY@199904/25/17 Naproxen Sodium 440 mg PO DAILY@79904/25/17 [place]-3S/Dha/Epa/Fish Oil/D3 [Fish Oil Gummies] 1 tab PO DAILY@79904/25/17 Quercetin Dihydrate 1 gm PO DAILY@139904/25/17 Quercetin Dihydrate 500 mg PO DAILY@79904/25/17 S-Adenosylmethionine Sul Tosyl [Mehdi-E] 400 mg PO DAILY@79904/25/17 S-Adenosylmethionine Sul Tosyl [Mehdi-E] 400 mg PO DAILY@139904/25/17 Turmeric Root Extract [Turmeric] 1,500 mg PO DAILY@199904/25/17 Ubidecarenone/Vit E Acetate [Co Q-10 100 mg Softgel] 200 mg PO DAILY@1400 Objective - Vital Signs/Intake & Output Reviewed Vital Signs: Yes Vital Signs: Vital Signs x48h Temp Pulse Resp BP Pulse Ox 04/29/17 09:22 112 H 146/87 H 04/29/17 08:00 36.4 C L 83 20 181/98 H 97 04/29/17 07:28 20 Intake & Output: Intake & Output 04/26/17 04/27/17 04/28/17 04/29/17 23:59 23:59 23:59 23:59 Intake Total 3031 2766 2880 1400 Balance 3031 2766 2880 1400 - Objective General Appearance: positive: Other (sleeping soundly with CPAP on when I first saw him at ~ 8a, and still ~ 8:30 Later ~ 9:30 when eating breakfast, states he feels anxious, sweathy, "tight inside") Eyes Bilateral: positive: Normal inspection Cardiovascular: positive: Regular rate & rhythm (HR ~ 106), No murmur Abdomen: positive: Nml bowel sounds, No distention. negative: Tenderness Neurologic/Psychiatric: positive: Oriented x3, Mood/affect nml, Other (very slightly anxious, but articulate, oriented) - Lab Results Fish Bones: 04/24/17 12:35 04/27/17 05:31 Assessment/Plan - Problem List (1) Psychosis Impression: 1)Benzodiazepine Withdrawal suspect patient symptoms this morning , diaphroesis, tachycardia (modest anxiety)reflect continued benzo withdrawal (which can be intermittant even though the acute withdrawal on the phenobarb protocol was completed prior to admission . THis is not a PTSD episode, and he is not psychotic. I called and left message to speak with Dr. Rosado, but he spoke with patient and . He indicated to them he thinks his symptoms overnight and this morning reflect ongoing intermittent benzo w/d s/s as well. He agrees w/ the plan to do cymbalta 30 mg po bid Plan for d/c tomorrow after trial of Diarrhea which is likely a withdrawal symptom is improved, continue prn immodium (2) HTN (hypertension) Assessment/Plan: 04/29; BP reasonable control, continue metoprolol and lisinopril 04/28; blood pressure well controlled, no changes to current regimen 04/27; still elevated, low dose acei added yesterday. reports well controlled at home and "white coat htn". He does note some low level anxiety currently; will continue to monitor and not add any new meds right now as still may have some withdrawal (SBP 141 at 4pm,) continue home metoprolol (and the acei started here) (since new ACEI, if continues on d/c should have f/u 04/26 Poor control on current medications. May be exacerbated by the medication withdrawal. Plan: continue to monitor. Add Low dose ACEI 3)Insomnia: per Dr. Rosado; will need outpatient CBT for insomina; does have sleep study already planned as outpatient continuing only with melatonin at HS for now and the cymbalta bid as above 4) Hyperlipidemia : continue statin Qualifiers: Psychosis type: other Qualified Code(s): F28 - Other psychotic disorder not due to a substance or known physiological condition
[2017-04-29] MEDS: [UNRECOGNIZED DRUG - OTHER] PO SCH (13:56)
[2017-04-29] MEDS: UBIDECARENONE PO SCH (13:56)
[2017-04-29] MEDS: DULoxetine 30 MG CAPSULE PO SCH (22:04)
[2017-04-29] MEDS: Melatonin [Melatonin] 10 MG PO PRN (22:04)
[2017-04-30] MEDS: PANTOPRAZOLE 40 MG TABLET PO SCH (07:00)
[2017-04-30] MEDS: SODIUM CHLORIDE FLUSH 0.9% 10 ML SYRINGE IVP SCH (07:01)
[2017-04-30 08:16] VITALS: BP 158/93
[2017-04-30] MEDS: ATORVASTATIN 10 MG TABLET PO SCH (08:40)
[2017-04-30] MEDS: LISINOPRIL 5 MG TABLET PO SCH (08:40)
[2017-04-30] MEDS: METOPROLOL SUCCINATE 50 MG TABLET PO SCH (08:40)
[2017-04-30] MEDS: POLYETHYLENE GLYCOL 3350 17 GM PACKET PO SCH (08:41)
[2017-04-30] MEDS: LOPERAMIDE 2 MG CAPSULE PO SCH (08:42)
[2017-04-30] MEDS: ENOXAPARIN 40 MG/0.4 ML SYRINGE SUBQ SCH (08:43)
[2017-04-30] MEDS ORDERED: DULoxetine 30 MG CAPSULE PO SCH (09:00)
[2017-04-30] MEDS: ACETAMINOPHEN 325 MG TABLET PO PRN (10:03)
--- NOTE | 2017-05-01 20:34 | DISCHARGE SUMMARY ---
DATE OF ADMISSION: 04/24/2017 DATE OF DISCHARGE: 04/30/2017 PRIMARY CARE PROVIDER: MARISSA Shin PRIMARY PSYCHIATRIST: Dr. Reese Rosado PRIMARY DISCHARGE DIAGNOSES: 1. Acute delirium and psychosis due to benzodiazepine withdrawal. 2. Acute delirium and psychosis due to baclofen withdrawal. 3. Anxiety. 4. Posttraumatic stress disorder. CONSULTATIONS: None. PROCEDURES: None. DIAGNOSTIC IMAGING STUDIES: Chest x-ray 04/24/2017: Normal single view chest. DIAGNOSTIC LABORATORY STUDIES: Chemistry and CBC are unremarkable. Urinalysis on admission unremarkable except for a specific gravity of 1.030. Urine tox screen is notable for barbiturates and benzodiazepines. BRIEF HOSPITAL COURSE BY PROBLEM: 1. Benzodiazepine and baclofen withdrawal: The patient is a 71-year-old gentleman with a history of PTSD and anxiety who has been on long-term, many years of clonazepam, lorazepam, baclofen and has also on been on Cymbalta for depression and had been on as much as 120 mg / day cymbalta. He recently wanted to get off of a number of these agents and was in a rehab center with a phenobarbital protocol for benzodiazepine withdrawal. He had been at [facility] for monitored withdrawal of his clonazepam and lorazepam. He also had been briefly started on gabapentin and trazodone. He presented to the ED with confusion, agitation and manic-like activity. In the ED, he actually had urine tox screen positive for benzodiazepines, although he presumably had not been taking them for at least 10 days since he has been tapered off of them. His presentation was most consistent with recurrent withdrawal symptoms from his long-term baclofen. In communication with his psychiatrist, who indicated he was at risk for PTSD flare during which he becomes very agitated, he was monitored in the hospital and after several days his symptoms remarkably improved. He was alert and oriented, although he did still have occasional breakthrough anxiety with mild tachycardia and diaphoresis. His Cymbalta was added back at a lower dose of 30 mg b.i.d. and the patient was markedly improved. His psychiatrist had recommended watching him for several days given the high risk of an acute PTSD attack. By 04/30/2017, he was markedly improved. He is aware that he may have continuing intermittent and unpredictable episodes of anxiety and diaphoresis and possible diarrhea as a side effect of his long- term benzodiazepine use, which will take some time before withdrawal, and he will follow up with Dr. Rosado. 2. Hypertension. The patient is normally on metoprolol at home. His blood pressure was suboptimal and low dose lisinopril was added, which can be reevaluated on followup. DISCHARGE MEDICATIONS: He is no longer going to be taking any baclofen, no clonazepam, no lorazepam, no gabapentin. 1. He will start a lower dose of Cymbalta at 30 mg twice daily. 2. He will continue on his metoprolol 100 mg once daily. 3. New prescription for lisinopril 5 mg once daily. 4. Continue naproxen 220 mg once daily. 5. Milk thistle extract 250 mg once daily. 6. Cholecalciferol 2000 units once daily. 7. Vitamin E acetate/ubidecarenone softgel 200 mg once daily. 8. YANIQUE-e 400 mg once daily. 9. Centrum Silver. 10. Meservey-3 fatty acid 1 daily. 11. Atorvastatin 20 mg once daily. 12. Melatonin 5 mg nightly for sleep. Of note, the patient takes many herbals and the has cleared these through Dr. Rosado. PHYSICAL EXAMINATION ON DISCHARGE VITAL SIGNS: Afebrile at 36.7, heart rate 79, blood pressure 158/93, respiratory rate 17, 97% oxygenation on room air. GENERAL: The patient is a pleasant gentleman initially seen sleeping with his CPAP on, later was seen up in the chair eating breakfast. He is alert, oriented and appropriate. He reports having slept well with only mild diaphoresis. He is not feeling anxious this morning. HEAD, EYES, EARS, NOSE AND THROAT: Pupils are equal. Extraocular movements intact. There is no nystagmus. There is no tremor. CHEST: Respirations are clear to auscultation, unlabored respirations. HEART: Regular S1, S2, with no appreciable extra sounds. There is no lower extremity edema. ABDOMEN: Generous, soft, nontender. ABDOMEN; generous abdomen, nontender, nondistended, + bowel sounds EXT; no edema Skin ; warm, dry , no diaphoresis JOB #: [id number] EXT JOB #:[id number] [facility]
== END 2017-04-30 12:34 | disposition home or self-care (01) | DRG 897 ==
LOC: EDUNIT# → ED 11:14 → MS 16:36
PROVIDERS: ADMIT Physician Assistant; ATTEND Nurse Practitioner
DX: F29 Unspecified psychosis not due to a substance or known physiological condition (principal); F19.931 Other psychoactive substance use, unspecified with withdrawal delirium; E78.00 Pure hypercholesterolemia, unspecified; G47.30 Sleep apnea, unspecified; F41.9 Anxiety disorder, unspecified; F43.10 Post-traumatic stress disorder, unspecified; F32.9 Major depressive disorder, single episode, unspecified; I10 Essential (primary) hypertension; Z98.890 Other specified postprocedural states; Z85.51 Personal history of malignant neoplasm of bladder; Z86.73 Personal history of transient ischemic attack (TIA), and cerebral infarction without residual deficits; G47.00 Insomnia, unspecified; G47.33 Obstructive sleep apnea (adult) (pediatric); E78.5 Hyperlipidemia, unspecified; Z79.1 Long term (current) use of non-steroidal anti-inflammatories (NSAID); Z79.899 Other long term (current) drug therapy
CPT/HCPCS: 36415; 71010; 80053; 80306; 80307; 80320; 80329; 81001; 81003; 83690; 84443; 85025; 87086; 99283; 99284

== ENCOUNTER 2017-05-04 14:07 | Outpatient (CLI) | payer MEDICARE, BC | END 2017-05-04 14:08 | disposition home or self-care (01) | LOC: SC 14:07 | PROVIDERS: ATTEND Internal Medicine Pulmonary Disease | DX: G47.33 Obstructive sleep apnea (adult) (pediatric) (principal); G47.00 Insomnia, unspecified | CPT/HCPCS: 99203; G0463; 99212 ==

== ENCOUNTER 2017-05-20 22:49 | Outpatient (CLI) | payer MEDICARE, BC | END 2017-05-20 22:50 | disposition home or self-care (01) | LOC: SC 22:49 | PROVIDERS: ATTEND Internal Medicine Pulmonary Disease | DX: G47.61 Periodic limb movement disorder (principal) | CPT/HCPCS: 95810 ==

== ENCOUNTER 2017-06-29 13:23 | Outpatient (CLI) | payer MEDICARE, BC | END 2017-06-29 13:24 | disposition home or self-care (01) | LOC: SC 13:23 | PROVIDERS: ATTEND Nurse Practitioner Family | DX: G47.61 Periodic limb movement disorder (principal); R06.83 Snoring | CPT/HCPCS: 99214; G0463; 99212 ==

== ENCOUNTER 2018-03-28 11:31 | Outpatient (CLI) | payer MEDICARE, BC ==
[2018-03-28 17:37] LABS: BASOPHILS # (AUTO) 0.1 10^3/uL (0.0-0.1); BASOPHILS % (AUTO) 1.3 %; EOSINOPHILS # (AUTO) 0.3 10^3/uL (0.0-0.7); EOSINOPHILS % (AUTO) 4.3 %; HGB - HEMOGLOBIN 13.9 g/dL (14.0-18.0); LYMPHOCYTES # (AUTO) 1.4 10^3/uL (1.5-3.5); LYMPHOCYTES % (AUTO) 22.5 %; MEAN CORPUSCULAR HEMOGLOBIN 30.9 pg (27.0-31.0); MEAN CORPUSCULAR HGB CONC 32.8 g/dL (32.0-36.0); MEAN CORPUSCULAR VOLUME 94.1 fL (80.0-94.0); MEAN PLATELET VOLUME 8.8 fL (7.4-11.4); MONOCYTES # (AUTO) 0.6 10^3/uL (0.0-1.0); MONOCYTES % (AUTO) 8.9 %; PLT - PLATELET COUNT 218 10^3/uL (130-450); RED BLOOD COUNT 4.51 10^6/uL (4.70-6.10); WHITE BLOOD COUNT 6.4 x10^3/uL (4.8-10.8)
[2018-03-28 18:39] LABS: ALBUMIN 4.3 g/dL (3.2-5.5); ALBUMIN/GLOBULIN RATIO 1.7 (1.0-2.2); ALKALINE PHOSPHATASE 52 IU/L (42-121); ALT ALANINE AMINOTRANSFERASE 24 IU/L (10-60); AST ASPARTATE AMINOTRANSFERASE 20 IU/L (10-42); BILIRUBIN,TOTAL 0.9 mg/dL (0.2-1.0); BUN - BLOOD UREA NITROGEN 25 mg/dL (6-20); CALCIUM 9.1 mg/dL (8.5-10.3); CARBON DIOXIDE - CO2 26 mmol/L (21-32); CHLORIDE 101 mmol/L (101-111); CHOL/HDL RATIO 3.2 (<5.0); CHOLESTEROL 152 mg/dL; CREATININE 0.9 mg/dL (0.6-1.2); GFR - MDRD 83 (>89); GLUCOSE 103 mg/dL (70-100); HDL CHOLESTEROL 48 mg/dL; LDL CHOLESTEROL,CALCULATED 66 mg/dL; LDL/HDL RATIO 1.4 (<3.6); SODIUM 137 mmol/L (135-145); TOTAL PROTEIN 6.8 g/dL (6.7-8.2); VLDL CHOLESTEROL 38 mg/dL
== END 2018-03-28 11:32 | disposition home or self-care (01) ==
LOC: LAB.S 11:31
PROVIDERS: ATTEND Nurse Practitioner Family
DX: I10 Essential (primary) hypertension (principal); E78.5 Hyperlipidemia, unspecified; Z12.5 Encounter for screening for malignant neoplasm of prostate
CPT/HCPCS: 36415; 80053; 80061; 84443; 85025; G0103; 83721; 84153

== ENCOUNTER 2018-06-02 11:47 | Outpatient (CLI) | payer MEDICARE, BC | END 2018-06-02 11:48 | disposition home or self-care (01) | LOC: RT.S 11:47 | PROVIDERS: ATTEND Family Medicine | DX: R00.2 Palpitations (principal) | CPT/HCPCS: 36415; 80053; 84443; 85025; 93005 ==

== ENCOUNTER 2018-06-02 12:35 | Outpatient (CLI) | payer MEDICARE, BC ==
[2018-06-02 18:08] LABS: BASOPHILS # (AUTO) 0.1 10^3/uL (0.0-0.1); BASOPHILS % (AUTO) 1.3 %; EOSINOPHILS # (AUTO) 0.3 10^3/uL (0.0-0.7); EOSINOPHILS % (AUTO) 5.5 %; LYMPHOCYTES # (AUTO) 1.2 10^3/uL (1.5-3.5); LYMPHOCYTES % (AUTO) 22.1 %; MEAN CORPUSCULAR HEMOGLOBIN 32.3 pg (27.0-31.0); MEAN CORPUSCULAR HGB CONC 33.2 g/dL (32.0-36.0); MEAN CORPUSCULAR VOLUME 97.3 fL (80.0-94.0); MEAN PLATELET VOLUME 8.6 fL (7.4-11.4); MONOCYTES # (AUTO) 0.5 10^3/uL (0.0-1.0); MONOCYTES % (AUTO) 8.7 %; NEUTROPHILS # (AUTO) 3.4 10^3/uL (1.5-6.6); NEUTROPHILS % (AUTO) 62.4 %; PLT - PLATELET COUNT 208 10^3/uL (130-450); RED BLOOD COUNT 4.63 10^6/uL (4.70-6.10); RED CELL DISTRIBUTION WIDTH 13.5 % (12.0-15.0); WHITE BLOOD COUNT 5.5 x10^3/uL (4.8-10.8)
[2018-06-02 18:16] LABS: ALBUMIN 4.4 g/dL (3.2-5.5); ALBUMIN/GLOBULIN RATIO 1.6 (1.0-2.2); BILIRUBIN,TOTAL 1.1 mg/dL (0.2-1.0); CALCIUM 9.1 mg/dL (8.5-10.3); TOTAL PROTEIN 7.2 g/dL (6.7-8.2)
== END 2018-06-02 12:36 | disposition home or self-care (01) ==
LOC: LAB.F 12:35
PROVIDERS: ATTEND Family Medicine
DX: R00.2 Palpitations (principal)
CPT/HCPCS: 36415; 80053; 84443; 85025

== ENCOUNTER 2018-06-20 11:32 | Outpatient (CLI) | payer MEDICARE, BC ==
[2018-06-20 20:03] LABS: HB2 TOTAL 17.1 g/dL; HEMOGLOBIN A1C 0.66 g/dL; HEMOGLOBIN A1C % 5.7 % (4.6-6.2)
== END 2018-06-20 11:33 | disposition home or self-care (01) ==
LOC: LAB.S 11:32
PROVIDERS: ATTEND Family Medicine
DX: R73.9 Hyperglycemia, unspecified (principal)
CPT/HCPCS: 36415; 82947; 83036

== ENCOUNTER 2019-10-31 14:30 | Outpatient (CLI) | payer MEDICARE, BC ==
[2019-10-31 17:34] LABS: BASOPHILS # (AUTO) 0.1 10^3/uL (0.0-0.1); BASOPHILS % (AUTO) 1.3 %; EOSINOPHILS # (AUTO) 0.2 10^3/uL (0.0-0.7); EOSINOPHILS % (AUTO) 4.3 %; HGB - HEMOGLOBIN 14.4 g/dL (14.0-18.0); LYMPHOCYTES # (AUTO) 1.1 10^3/uL (1.5-3.5); LYMPHOCYTES % (AUTO) 24.7 %; MEAN CORPUSCULAR HEMOGLOBIN 31.6 pg (27.0-31.0); MEAN CORPUSCULAR HGB CONC 33.2 g/dL (32.0-36.0); MEAN CORPUSCULAR VOLUME 95.2 fL (80.0-94.0); MEAN PLATELET VOLUME 10.8 fL (7.4-11.4); MONOCYTES # (AUTO) 0.4 10^3/uL (0.0-1.0); NEUTROPHILS # (AUTO) 2.7 10^3/uL (1.5-6.6); NEUTROPHILS % (AUTO) 60.3 %; PLT - PLATELET COUNT 155 10^3/uL (130-450); RED BLOOD COUNT 4.56 10^6/uL (4.70-6.10); RED CELL DISTRIBUTION WIDTH 12.4 % (12.0-15.0); WHITE BLOOD COUNT 4.5 x10^3/uL (4.8-10.8)
[2019-10-31 17:54] LABS: ALBUMIN 4.6 g/dL (3.2-5.5); ALBUMIN/GLOBULIN RATIO 1.6 (1.0-2.2); ALKALINE PHOSPHATASE 48 IU/L (42-121); ALT ALANINE AMINOTRANSFERASE 25 IU/L (10-60); AST ASPARTATE AMINOTRANSFERASE 23 IU/L (10-42); BUN - BLOOD UREA NITROGEN 18 mg/dL (6-20); CALCIUM 9.1 mg/dL (8.5-10.3); CARBON DIOXIDE - CO2 26 mmol/L (21-32); CHLORIDE 106 mmol/L (101-111); CHOL/HDL RATIO 4.2 (<5.0); CHOLESTEROL 184 mg/dL; CREATININE 0.9 mg/dL (0.6-1.2); GFR - MDRD 83 (>89); GLUCOSE 109 mg/dL (70-100); HDL CHOLESTEROL 44 mg/dL; LDL CHOLESTEROL,CALCULATED 95 mg/dL; LDL/HDL RATIO 2.2 (<3.6); SODIUM 140 mmol/L (135-145); TOTAL PROTEIN 7.4 g/dL (6.7-8.2); VLDL CHOLESTEROL 45 mg/dL
[2019-10-31 18:00] LABS: PSA FREE 0.37 ng/mL (0.16-2.81)
[2019-10-31 18:01] LABS: PSA TOTAL 1.27 ng/mL (0.000-2.000)
== END 2019-10-31 14:31 | disposition home or self-care (01) ==
LOC: LAB.S 14:30
PROVIDERS: ATTEND Registered Nurse
DX: Z00.00 Encounter for general adult medical examination without abnormal findings (principal); I10 Essential (primary) hypertension; Z87.891 Personal history of nicotine dependence; E78.5 Hyperlipidemia, unspecified
CPT/HCPCS: 36415; 80053; 80061; 83721; 84153; 84154; 84443; 85025

== ENCOUNTER 2020-01-08 07:00 | Outpatient (CLI) | payer MEDICARE, BC | END 2020-01-08 23:59 | disposition home or self-care (01) | LOC: LAB.R 07:00 | PROVIDERS: ATTEND Registered Nurse | DX: J06.9 Acute upper respiratory infection, unspecified (principal) | CPT/HCPCS: 87070 ==

== ENCOUNTER 2020-12-19 12:04 | Outpatient (CLI) | payer MEDICARE, BC ==
[2020-12-19 15:03] LABS: BASOPHILS # (AUTO) 0.1 10^3/uL (0.0-0.1); BASOPHILS % (AUTO) 1.1 %; EOSINOPHILS # (AUTO) 0.3 10^3/uL (0.0-0.7); EOSINOPHILS % (AUTO) 3.9 %; LYMPHOCYTES # (AUTO) 1.6 10^3/uL (1.5-3.5); LYMPHOCYTES % (AUTO) 24.6 %; MEAN CORPUSCULAR HEMOGLOBIN 31.5 pg (27.0-31.0); MEAN CORPUSCULAR HGB CONC 33.3 g/dL (32.0-36.0); MEAN CORPUSCULAR VOLUME 94.5 fL (80.0-94.0); MEAN PLATELET VOLUME 10.9 fL (7.4-11.4); MONOCYTES # (AUTO) 0.6 10^3/uL (0.0-1.0); NEUTROPHILS # (AUTO) 3.9 10^3/uL (1.5-6.6); NEUTROPHILS % (AUTO) 61.1 %; PLT - PLATELET COUNT 201 10^3/uL (130-450); RED BLOOD COUNT 4.76 10^6/uL (4.70-6.10); RED CELL DISTRIBUTION WIDTH 12.5 % (12.0-15.0); WHITE BLOOD COUNT 6.4 x10^3/uL (4.8-10.8)
[2020-12-19 15:18] LABS: ALBUMIN 4.4 g/dL (3.2-5.5); ALBUMIN/GLOBULIN RATIO 1.6 (1.0-2.2); ALKALINE PHOSPHATASE 59 IU/L (42-121); ALT ALANINE AMINOTRANSFERASE 31 IU/L (10-60); AST ASPARTATE AMINOTRANSFERASE 21 IU/L (10-42); BILIRUBIN,TOTAL 1.1 mg/dL (0.2-1.0); BUN - BLOOD UREA NITROGEN 23 mg/dL (6-20); CALCIUM 9.7 mg/dL (8.5-10.3); CARBON DIOXIDE - CO2 25 mmol/L (21-32); CHLORIDE 105 mmol/L (101-111); CHOL/HDL RATIO 3.8 (<5.0); CHOLESTEROL 184 mg/dL; CREATININE 0.9 mg/dL (0.6-1.2); GLUCOSE 123 mg/dL (70-100); HDL CHOLESTEROL 48 mg/dL; LDL CHOLESTEROL,CALCULATED 84 mg/dL; LDL/HDL RATIO 1.8 (<3.6); TOTAL PROTEIN 7.1 g/dL (6.7-8.2); VLDL CHOLESTEROL 52 mg/dL
== END 2020-12-19 12:05 | disposition home or self-care (01) ==
LOC: LAB.S 12:04
PROVIDERS: ATTEND Registered Nurse
DX: C67.9 Malignant neoplasm of bladder, unspecified (principal); E78.5 Hyperlipidemia, unspecified; I10 Essential (primary) hypertension; Z12.5 Encounter for screening for malignant neoplasm of prostate
CPT/HCPCS: 36415; 80053; 80061; 84443; 85025; G0103; 83721; 84153

== ENCOUNTER 2021-12-22 10:55 | Outpatient (CLI) | payer MEDICARE, BC ==
[2021-12-22 14:25] LABS: BASOPHILS # (AUTO) 0.1 10^3/uL (0.0-0.1); BASOPHILS % (AUTO) 1.8 %; EOSINOPHILS # (AUTO) 0.3 10^3/uL (0.0-0.7); EOSINOPHILS % (AUTO) 5.2 %; HCT - HEMATOCRIT 41.9 % (42.0-52.0); LYMPHOCYTES # (AUTO) 1.8 10^3/uL (1.5-3.5); LYMPHOCYTES % (AUTO) 31.3 %; MEAN CORPUSCULAR HGB CONC 33.4 g/dL (32.0-36.0); MEAN CORPUSCULAR VOLUME 95.7 fL (80.0-94.0); MONOCYTES # (AUTO) 0.5 10^3/uL (0.0-1.0); NEUTROPHILS % (AUTO) 53.5 %; PLT - PLATELET COUNT 171 10^3/uL (130-450); RED BLOOD COUNT 4.38 10^6/uL (4.70-6.10); RED CELL DISTRIBUTION WIDTH 12.4 % (12.0-15.0); WHITE BLOOD COUNT 5.6 x10^3/uL (4.8-10.8)
[2021-12-22 15:34] LABS: ALBUMIN/GLOBULIN RATIO 1.5 (1.0-2.2); ALKALINE PHOSPHATASE 44 IU/L (42-121); ALT ALANINE AMINOTRANSFERASE 23 IU/L (10-60); AST ASPARTATE AMINOTRANSFERASE 20 IU/L (10-42); BUN - BLOOD UREA NITROGEN 17 mg/dL (6-20); CALCIUM 8.8 mg/dL (8.5-10.3); CARBON DIOXIDE - CO2 26 mmol/L (21-32); CHLORIDE 102 mmol/L (101-111); CHOL/HDL RATIO 3.3 (<5.0); CHOLESTEROL 164 mg/dL; CREATININE 0.8 mg/dL (0.6-1.2); GFR - MDRD 94 (>89); GLUCOSE 120 mg/dL (70-100); HDL CHOLESTEROL 50 mg/dL; LDL CHOLESTEROL,CALCULATED 74 mg/dL; LDL/HDL RATIO 1.5 (<3.6); POTASSIUM 4.4 mmol/L (3.5-5.0); SODIUM 135 mmol/L (135-145); TOTAL PROTEIN 6.6 g/dL (6.7-8.2); TRIGLYCERIDES 202 mg/dL; VLDL CHOLESTEROL 40 mg/dL
[2021-12-22 15:35] LABS: THYROID STIMULATING HORMONE 2.16 uIU/mL (0.34-5.60)
== END 2021-12-22 10:56 | disposition home or self-care (01) ==
LOC: LAB.S 10:55
PROVIDERS: ATTEND Registered Nurse
DX: I10 Essential (primary) hypertension (principal); C67.9 Malignant neoplasm of bladder, unspecified; E78.5 Hyperlipidemia, unspecified
CPT/HCPCS: 36415; 80053; 80061; 83721; 84443; 85025

== ENCOUNTER 2023-05-04 11:10 | Outpatient (CLI) | payer MEDICARE, BC ==
[2023-05-04 14:32] LABS: BASOPHILS # (AUTO) 0.1 10^3/uL (0.0-0.1); BASOPHILS % (AUTO) 1.9 %; EOSINOPHILS # (AUTO) 0.4 10^3/uL (0.0-0.7); HCT - HEMATOCRIT 42.3 % (42.0-52.0); HGB - HEMOGLOBIN 14.2 g/dL (14.0-18.0); LYMPHOCYTES # (AUTO) 1.7 10^3/uL (1.5-3.5); LYMPHOCYTES % (AUTO) 28.6 %; MEAN CORPUSCULAR HGB CONC 33.6 g/dL (32.0-36.0); MEAN CORPUSCULAR VOLUME 95.3 fL (80.0-94.0); MEAN PLATELET VOLUME 10.4 fL (7.4-11.4); MONOCYTES # (AUTO) 0.5 10^3/uL (0.0-1.0); MONOCYTES % (AUTO) 9.3 %; NEUTROPHILS # (AUTO) 3.1 10^3/uL (1.5-6.6); NEUTROPHILS % (AUTO) 53.7 %; PLT - PLATELET COUNT 191 10^3/uL (130-450); RED BLOOD COUNT 4.44 10^6/uL (4.70-6.10); RED CELL DISTRIBUTION WIDTH 12.6 % (12.0-15.0); WHITE BLOOD COUNT 5.8 x10^3/uL (4.8-10.8)
[2023-05-04 15:07] LABS: THYROID STIMULATING HORMONE 1.76 uIU/mL (0.34-5.60)
[2023-05-04 20:57] LABS: ALBUMIN/GLOBULIN RATIO 1.3 (1.0-2.2); ALKALINE PHOSPHATASE 43 IU/L (42-121); ALT ALANINE AMINOTRANSFERASE 46 IU/L (10-60); AST ASPARTATE AMINOTRANSFERASE 39 IU/L (10-42); BUN - BLOOD UREA NITROGEN 19 mg/dL (6-20); CALCIUM 8.9 mg/dL (8.5-10.3); CARBON DIOXIDE - CO2 27 mmol/L (21-32); CHLORIDE 106 mmol/L (101-111); CHOL/HDL RATIO 3.3 (<5.0); CHOLESTEROL 167 mg/dL; GFR - MDRD 73 (>89); GLUCOSE 129 mg/dL (70-100); HDL CHOLESTEROL 50 mg/dL; LDL CHOLESTEROL,CALCULATED 66 mg/dL; LDL/HDL RATIO 1.3 (<3.6); POTASSIUM 4.6 mmol/L (3.5-5.0); SODIUM 140 mmol/L (135-145); TRIGLYCERIDES 255 mg/dL; VLDL CHOLESTEROL 51 mg/dL
[2023-05-04 21:07] LABS: ESTIMATED AVERAGE GLUCOSE 126 mg/dL (70-100)
== END 2023-05-04 11:11 | disposition home or self-care (01) ==
LOC: LAB.S 11:10
PROVIDERS: ATTEND Registered Nurse
DX: I10 Essential (primary) hypertension (principal); R73.9 Hyperglycemia, unspecified; E78.5 Hyperlipidemia, unspecified
CPT/HCPCS: 36415; 80053; 80061; 83036; 83721; 84443; 85025

== ENCOUNTER 2023-07-13 08:00 | Outpatient (CLI) | payer MEDICARE, BC | END 2023-07-13 23:59 | disposition home or self-care (01) | LOC: LAB.S 08:00 | PROVIDERS: ATTEND Physician Assistant Medical | DX: R05.9 Cough, unspecified (principal); Z20.822 Contact with and (suspected) exposure to COVID-19 ==

== ENCOUNTER 2023-08-24 12:19 | Outpatient (CLI) | payer MEDICARE, BC ==
[2023-08-24 14:46] LABS: CALCIUM 9.8 mg/dL (8.5-10.3); CREATININE 1.1 mg/dL (0.6-1.3); POTASSIUM 5.4 mmol/L (3.5-4.5)
== END 2023-08-24 12:20 | disposition home or self-care (01) ==
LOC: LAB.S 12:19
PROVIDERS: ATTEND Internal Medicine Cardiovascular Disease
DX: I10 Essential (primary) hypertension (principal); I25.10 Atherosclerotic heart disease of native coronary artery without angina pectoris
CPT/HCPCS: 36415; 80048

== ENCOUNTER 2023-09-03 13:50 | Outpatient (CLI) | payer MEDICARE, BC ==
[2023-09-03 20:52] LABS: CALCIUM 9.6 mg/dL (8.5-10.3); CREATININE 1.1 mg/dL (0.6-1.3); POTASSIUM 4.8 mmol/L (3.5-4.5)
== END 2023-09-03 13:51 | disposition home or self-care (01) ==
LOC: LAB.S 13:50
PROVIDERS: ATTEND Internal Medicine Cardiovascular Disease
DX: I25.10 Atherosclerotic heart disease of native coronary artery without angina pectoris (principal); I10 Essential (primary) hypertension
CPT/HCPCS: 36415; 80048

== ENCOUNTER 2024-04-26 13:14 | Outpatient (CLI) | payer MEDICARE, BC ==
[2024-04-26 20:04] LABS: BASOPHILS # (AUTO) 0.1 10^3/uL (0.0-0.1); BASOPHILS % (AUTO) 1.3 %; EOSINOPHILS # (AUTO) 0.3 10^3/uL (0.0-0.7); EOSINOPHILS % (AUTO) 5.7 %; HCT - HEMATOCRIT 37.5 % (42.0-52.0); HGB - HEMOGLOBIN 12.8 g/dL (14.0-18.0); LYMPHOCYTES # (AUTO) 1.3 10^3/uL (1.5-3.5); LYMPHOCYTES % (AUTO) 24.4 %; MEAN CORPUSCULAR HEMOGLOBIN 32.3 pg (27.0-31.0); MEAN CORPUSCULAR HGB CONC 34.1 g/dL (32.0-36.0); MEAN CORPUSCULAR VOLUME 94.7 fL (80.0-94.0); MEAN PLATELET VOLUME 10.9 fL (7.4-11.4); MONOCYTES # (AUTO) 0.5 10^3/uL (0.0-1.0); MONOCYTES % (AUTO) 8.8 %; NEUTROPHILS # (AUTO) 3.1 10^3/uL (1.5-6.6); NEUTROPHILS % (AUTO) 59.6 %; PLT - PLATELET COUNT 176 10^3/uL (130-450); RED BLOOD COUNT 3.96 10^6/uL (4.70-6.10); RED CELL DISTRIBUTION WIDTH 11.9 % (12.0-15.0); WHITE BLOOD COUNT 5.3 x10^3/uL (4.8-10.8)
[2024-04-26 21:05] LABS: THYROID STIMULATING HORMONE 1.34 uIU/mL (0.34-5.60)
[2024-04-26 21:20] LABS: ALBUMIN 4.1 g/dL (3.2-5.5); ALBUMIN/GLOBULIN RATIO 1.6 (1.0-2.2); ALKALINE PHOSPHATASE 42 IU/L (42-121); ALT ALANINE AMINOTRANSFERASE 27 IU/L (10-60); AST ASPARTATE AMINOTRANSFERASE 24 IU/L (10-42); BILIRUBIN,TOTAL 0.5 mg/dL (0.2-1.0); BUN - BLOOD UREA NITROGEN 27 mg/dL (6-20); CALCIUM 9.6 mg/dL (8.5-10.3); CARBON DIOXIDE - CO2 25 mmol/L (21-32); CHLORIDE 105 mmol/L (101-111); CHOL/HDL RATIO 3.3 (<5.0); CHOLESTEROL 146 mg/dL; CREATININE 1.2 mg/dL (0.6-1.3); GFR - MDRD 59 (>89); GLUCOSE 123 mg/dL (74-104); HDL CHOLESTEROL 44 mg/dL; LDL CHOLESTEROL,CALCULATED 58 mg/dL; LDL/HDL RATIO 1.3 (<3.6); POTASSIUM 4.9 mmol/L (3.5-4.5); SODIUM 137 mmol/L (135-145); TOTAL PROTEIN 6.6 g/dL (6.4-8.9); TRIGLYCERIDES 220 mg/dL (48-352); VLDL CHOLESTEROL 44 mg/dL
== END 2024-04-26 13:15 | disposition home or self-care (01) ==
LOC: LAB.S 13:14
PROVIDERS: ATTEND Registered Nurse
DX: Z13.228 Encounter for screening for other metabolic disorders (principal); Z13.220 Encounter for screening for lipoid disorders; Z13.29 Encounter for screening for other suspected endocrine disorder; Z13.0 Encounter for screening for diseases of the blood and blood-forming organs and certain disorders involving the immune mechanism; R73.9 Hyperglycemia, unspecified
CPT/HCPCS: 36415; 80053; 80061; 83721; 84443; 85025

== ENCOUNTER 2024-06-28 13:34 | Outpatient (CLI) | payer MEDICARE, BC ==
[2024-06-28 20:10] LABS: CALCIUM 9.3 mg/dL (8.5-10.3); POTASSIUM 4.9 mmol/L (3.5-4.5)
== END 2024-06-28 13:35 | disposition home or self-care (01) ==
LOC: LAB.S 13:34
PROVIDERS: ATTEND Internal Medicine Cardiovascular Disease
DX: I10 Essential (primary) hypertension (principal); I25.10 Atherosclerotic heart disease of native coronary artery without angina pectoris
CPT/HCPCS: 36415; 80048